=== PATIENT | female | born 1945 | race Caucasian/White ===

== ENCOUNTER 2017-02-03 11:50 | Inpatient (IN) | payer MEDICARE, MEDICAID ==
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
[2017-02-03 12:51] LABS: ABSOLUTE BASOPHILS # (AUTO) 0.1 10^3/uL (0.0-0.2); ABSOLUTE LYMPHOCYTES (AUTO) 1.8 10^3/uL (0.5-4.7); ABSOLUTE MONOCYTES (AUTO) 0.8 10^3/uL (0.1-1.4); ABSOLUTE NEUT (AUTO) 6.6 10^3/uL (1.7-8.2); BASOPHILS % (AUTO) 0.7 % (0-2); EOSINOPHILS % (AUTO) 0.5 % (0-6); HEMATOCRIT 36.7 % (36.0-47.0); HEMOGLOBIN 13.3 g/dL (12.0-15.5); HGB HCT DIFFERENCE 3.2; LYMPHOCYTES % (AUTO) 19.4 % (13-45); MEAN CORPUSCULAR HEMOGLOBIN 32.4 pg (27.0-33.4); MEAN CORPUSCULAR HGB CONC 36.3 g/dL (32.0-36.0); MEAN CORPUSCULAR VOLUME 90 fl (80-97); MONOCYTES % (AUTO) 8.5 % (3-13); RED CELL DISTRIBUTION WIDTH 13.4 % (11.5-14.0); SEGMENTED NEUTROPHILS % (AUTO) 70.9 % (42-78); WHITE BLOOD COUNT 9.3 10^3/uL (4.0-10.5)
[2017-02-03 13:05] LABS: ALANINE AMINOTRANSFERASE 48 U/L (9-52); ALBUMIN 4.7 g/dL (3.5-5.0); ALKALINE PHOSPHATASE 80 U/L (38-126); ANION GAP 14 (5-19); ASPARTATE AMINO TRANSFERASE 51 U/L (14-36); BILIRUBIN,DIRECT 0.1 mg/dL (0.0-0.4); BILIRUBIN,TOTAL 0.8 mg/dL (0.2-1.3); BLOOD UREA NITROGEN 22 mg/dL (7-20); CALCIUM 9.8 mg/dL (8.4-10.2); CARBON DIOXIDE 28 mmol/L (22-30); CHLORIDE 87 mmol/L (98-107); CREATININE RESULT 1.17 mg/dL (0.52-1.25); GLUCOSE 104 mg/dL (75-110); POTASSIUM 3.9 mmol/L (3.6-5.0); SODIUM 129.4 mmol/L (137-145); TOTAL PROTEIN 7.7 g/dL (6.3-8.2)
[2017-02-03 13:18] LABS: CREATINE KINASE MB 1.05 ng/mL (<4.55)
[2017-02-03 13:21] LABS: TROPONIN I < 0.012 ng/mL
--- NOTE | 2017-02-03 13:25 | EKG REPORT ---
SEVERITY:- ABNORMAL ECG - ATRIAL-PACED COMPLEXES BORDERLINE T WAVE ABNORMALITIES : Confirmed by: Agustin Roberson MD 03-Feb-2017 13:24:02
--- NOTE | 2017-02-03 14:05 | ER Document Report ---
ED GI/ <SEGUNDO JACKSON - Last Filed: 02/03/17 16:15> - General Mode of Arrival: Ambulatory Information source: Patient, Relative - son TRAVEL OUTSIDE OF THE [place] IN LAST 30 DAYS: No - HPI Patient complains to provider of: Diarrhea, Vomiting Onset: Other - 3 days ago Associated symptoms: Other - see notes above <PAZ,PREETI - Last Filed: 02/03/17 16:29> - General Chief Complaint: Vomiting/Diarrhea Stated Complaint: ALTERED MENTAL STAUS/VOMITING/DIARRHEA Notes: 72 year old female with history of c-diff presents to the ED accompanied by her son who states that the patient has been vomiting for the past 3 days. The son reports that the patient has been more confused and forgetting things over the past 2 weeks. Patient moved into the son's home 4 weeks ago and the son states that for the first 2 weeks the patient was able to live on her own. The patient was making her own meals, taking medications on her own, and bathing herself, but that suddenly deteriorated 2 weeks ago. Over the last 2 weeks the patient has been more confused, son states that the patient would sit down on the toilet with her depends on and turn on the water to take a bath, but not get into the tub. Patient was seen at [facility] 6 days ago where they requested a stool sample (solid sample). Patient was positive for C-diff on 01/28/2017 and was started on antibiotics. Since yesterday, the patient has been unable to keep down her antibiotics, so the son brought her to the ED. The son reports that the patient first started vomiting 3 days ago, but got progressively worse over the next 2 days. Yesterday, the patient began to have profuse vomiting and diarrhea which has continued today. (PREETI PAZ) - Related Data Allergies/Adverse Reactions: No Known Allergies Allergy (Verified 02/03/17 11:58) Past Medical History - General Information source: Patient - Social History Smoking Status: Unknown if Ever Smoked Family History: DM, Hypertension, Other - Heart disease Patient has suicidal ideation: No Patient has homicidal ideation: No - Past Medical History Cardiac Medical History: Reports: Hx Coronary Artery Disease, Hx Hypercholesterolemia, Hx Hypertension Endocrine Medical History: Reports: Hx Diabetes Mellitus Type 1 - NIDDM, Hx Diabetes Mellitus Type 2 - INSULIN DEPENDENT, Hx Hypothyroidism GI Medical History: Reports: Hx Gastroesophageal Reflux Disease Musculoskeltal Medical History: Reports Hx Arthritis - osteoarthritis Infectious Medical History: Reports: Hx C-Diff Past Surgical History: Reports: Hx Cardiac Catheterization - STENT, PACEMAKER, Hx Coronary Stent, Hx Hysterectomy, Hx Orthopedic Surgery - toes - Immunizations Immunizations up to date: Yes Hx Diphtheria, Pertussis, Tetanus Vaccination: Yes <PREETI PAZ - Last Filed: 02/03/17 16:29> Review of Systems - Review of Systems Constitutional: See HPI, Recent illness - Stool sample positive for C-diff on EENT: No symptoms reported Cardiovascular: No symptoms reported Respiratory: No symptoms reported Gastrointestinal: See HPI, Diarrhea, Vomiting Genitourinary: No symptoms reported Female Genitourinary: No symptoms reported Musculoskeletal: No symptoms reported Skin: No symptoms reported Hematologic/Lymphatic: No symptoms reported Neurological/Psychological: See HPI, Confusion -: Yes All other systems reviewed and negative <PREETI PAZ - Last Filed: 02/03/17 16:29> Physical Exam - General General appearance: Alert In distress: None - HEENT Head: Normocephalic, Atraumatic Eyes: Normal Extraocular movements intact: Yes Pupils: PERRL - Respiratory Respiratory status: No respiratory distress Breath sounds: Normal - Cardiovascular Rhythm: Regular Heart sounds: Normal auscultation - Abdominal Inspection: Normal Distension: No distension Tenderness: Nontender - Back Back: Normal - Extremities General upper extremity: Normal inspection, Normal ROM General lower extremity: Normal inspection, Normal ROM - Neurological Neuro grossly intact: Yes Cognition: Normal Orientation: Disoriented to place, Disoriented to time, Disoriented to events [place] Coma Scale Eye Opening: Spontaneous [place] Coma Scale Verbal: Oriented [place] Coma Scale Motor: Obeys Commands Aydee Coma Scale Total: 15 Speech: Normal - Psychological Associated symptoms: Normal affect, Normal mood - Skin Skin Temperature: Warm Skin Moisture: Dry Skin Color: Normal <PREETI PAZ - Last Filed: 02/03/17 16:29> - Vital signs Vitals: Temp Pulse Resp BP Pulse Ox 98.5 F 95 18 125/66 98 02/03/17 12:02 02/03/17 12:02 02/03/17 12:02 02/03/17 12:02 02/03/17 12:02 Course - Laboratory Result Diagrams: 02/03/17 12:20 02/03/17 12:20 - EKG Interpretation by Me Rate: Normal <SEGUNDO JACKSON - Last Filed: 02/03/17 16:15> - Laboratory Result Diagrams: 02/03/17 12:20 02/03/17 12:20 - Consults Dr. Parish Time consulted: 16:15 <PREETI PAZ - Last Filed: 02/03/17 16:29> - Vital Signs Vital signs: Temp Pulse Resp BP Pulse Ox 98.5 F 95 18 125/66 98 02/03/17 12:02 02/03/17 12:02 02/03/17 12:02 02/03/17 12:02 02/03/17 12:02 - Laboratory Laboratory results interpreted by me: 02/03/17 02/03/17 02/03/17 12:20 12:20 14:18 MCHC 36.3 H Sodium 129.4 L Chloride 87 L BUN 22 H Est GFR ( Amer) 55 L Est GFR (Non-Af Amer) 45 L AST 51 H Lipase 346.0 H Urine Blood SMALL H Ur Leukocyte Esterase LARGE H - EKG Interpretation by Me Additional EKG results interpreted by me: 02/03/17 14:57 Atrial paced rhythm with borderline T-wave abnormalities and flattening. Normal QRS. No ectopy (SEGUNDO JACKSON) - Consults Dr. Parish Reason for consultation: 02/03/17 16:15 Patient was discussed with Dr. Parish and agrees to admit the patient. (PREETI PAZ) Discharge <SEGUNDO JACKSON - Last Filed: 02/03/17 16:15> <PREETI PAZ - Last Filed: 02/03/17 16:29> - Discharge Clinical Impression: Vomiting and diarrhea, Hyponatremia, Clostridium difficile diarrhea Scribe Documentation - Scribe Written by [place]:: America Yao, 02/03/2017 1500 acting as scribe for :: Georges <PREETI PAZ - Last Filed: 02/03/17 16:29>
[2017-02-03] MEDS ORDERED: NORMAL SALINE 1000 ML 1,000 ML IV ONE (14:47)
[2017-02-03 15:08] LABS: APPEARANCE,URINE SLIGHTLY-CLOUDY; BILIRUBIN,URINE NEGATIVE (NEGATIVE); GLUCOSE, URINE NEGATIVE (NEGATIVE); KETONES,URINE NEGATIVE (NEGATIVE); LEUKOCYTE ESTERASE,URINE LARGE (NEGATIVE); NITRITE,URINE NEGATIVE (NEGATIVE); PROTEIN,URINE NEGATIVE (NEGATIVE); URINE SPECIFIC GRAVITY 1.004; UROBILINOGEN,URINE NEGATIVE mg/dL (<2.0)
[2017-02-03] MEDS ORDERED: ACETAMINOPHEN 325 MG TABLET PO PRN (17:53)
[2017-02-03] MEDS ORDERED: NORMAL SALINE 1000 ML 1,000 ML IV PRN (17:53)
[2017-02-03] MEDS ORDERED: ONDANSETRON HCL INJ/PF 4 MG/2 ML SDV IV PRN (18:01)
[2017-02-03] MEDS ORDERED: INSULIN REG, HUMAN 100 UNIT/ML 3 ML VIAL (PYX) SUBCUT PRN (18:38)
[2017-02-03] MEDS ORDERED: DEXTROSE 50%-WATER 25 GM/50 ML DISP.SYRIN IV PRN ×2 (18:38)
[2017-02-03] MEDS ORDERED: DEXTROSE 40% GEL 15 GM TUBE PO PRN ×2 (18:38)
[2017-02-03] MEDS ORDERED: GLUCAGON,HUMAN RECOMB 1 MG INJ IM PRN (18:38)
--- NOTE | 2017-02-03 18:38 | PDOC H&P ---
History of Present Illness Admission Date/PCP: 02/03/17 18:12 Patient complains of: Nausea or vomiting History of Present Illness: NARAYAN CROSS is a 72 year old female, with history of coronary artery disease, hypertension, hyperlipidemia, type II diabetes mellitus diet controlled brought to the hospital by the family due to nausea vomiting and confusion. Patient has an underlying dementia but still able to communicate. Reliability however is a question. She was diagnosed last week by her physician with Clostridium difficile colitis. She was having diarrhea for several days with decreased oral intake. Reportedly the diarrhea persisted and for the past 2-3 days the patient started to develop nausea and vomiting. The patient denies abdominal pain, shortness of breath, chills or fever. She stated that she go to the [facility] about 3 times per day to move her bowels, and when asked when was the last time she had a bowel movement, she reports was 2 days ago. In the emergency room no diarrhea still reported. Sodium level is low. WBC was normal. Patient was referred for admission. Past Medical History Past Medical History: Medication reconciliation pending verification from the patient's pharmacist. Cardiac Medical History: Reports: Coronary Artery Disease, Hyperlipidema, Hypertension Denies: DVT, Myocardial Infarction Pulmonary Medical History: Denies: Asthma, Chronic Obstructive Pulmonary Disease (COPD) Neurological Medical History: Denies: Migraine, Seizures Endocrine Medical History: Reports: Diabetes Mellitus Type 1 - NIDDM, Diabetes Mellitus Type 2 - INSULIN DEPENDENT, Hypothyroidism GI Medical History: Reports: Gastroesophageal Reflux Disease Denies: Hepatitis, Hiatal Hernia Musculoskeltal Medical History: Reports: Arthritis - osteoarthritis Psychiatric Medical History: Denies: Depression Hematology: Denies: Anemia, Sickle Cell Disease Infectious Medical History: Reports: Clostridium Difficile Past Surgical History Past Surgical History: Reports: Cardiac Catheterization - STENT, PACEMAKER, Coronary Stent, Hysterectomy, Orthopedic Surgery - toes, Other - Pacemaker implant Denies: Amputation, Mastectomy, Pacemaker Social History Information Source: Patient Smoking Status: Never Smoker Frequency of Alcohol Use: None Hx Recreational Drug Use: No Drugs: None Hx Prescription Drug Abuse: No Family History Family History: DM, Hypertension, Other - Heart disease Parental Family History Reviewed: Yes Children Family History Reviewed: Yes Sibling(s) Family History Reviewed.: Yes Medication/Allergy Allergies/Adverse Reactions: No Known Allergies Allergy (Verified 02/03/17 11:58) Review of Systems Review of Systems: Again reliability is questionable however patient still able to communicate. Constitutional: PRESENT: headache(s) - Occasional. ABSENT: chills, fever(s), weakness, weight gain, weight loss Eyes: ABSENT: visual disturbances Ears: ABSENT: hearing changes Nose, Mouth, and Throat: ABSENT: mouth pain, sore throat Cardiovascular: ABSENT: chest pain, dyspnea on exertion, edema, orthropnea, palpitations Respiratory: PRESENT: cough - Occasional. ABSENT: dyspnea, hemoptysis Gastrointestinal: PRESENT: abdominal pain, diarrhea, nausea, vomiting. ABSENT: constipation, hematemesis, hematochezia, melena Genitourinary: ABSENT: difficulty urinating, dysuria, hematuria Musculoskeletal: ABSENT: joint swelling Integumentary: ABSENT: pruritus, rash, wounds Neurological: ABSENT: confusion, dizziness, focal weakness, syncope Psychiatric: ABSENT: anxiety, depression, homidical ideation, suicidal ideation Endocrine: ABSENT: cold intolerance, heat intolerance, polydipsia, polyphagia, polyuria Hematologic/Lymphatic: ABSENT: easy bleeding, easy bruising Physical Exam Vital Signs: Temp Pulse Resp BP Pulse Ox 98.5 F 95 18 125/66 98 02/03/17 12:02 02/03/17 12:02 02/03/17 12:02 02/03/17 12:02 02/03/17 12:02 General appearance: PRESENT: no acute distress, cooperative, other - Overweight Head exam: PRESENT: atraumatic, normocephalic Eye exam: PRESENT: conjunctiva pink, EOMI, PERRLA. ABSENT: scleral icterus Ear exam: PRESENT: normal external ear exam. ABSENT: drainage Mouth exam: PRESENT: dry mucosa, neck supple, tongue midline Throat exam: ABSENT: post pharyngeal erythema, tonsillar erythema Neck exam: ABSENT: carotid bruit, JVD, lymphadenopathy, thyromegaly Respiratory exam: PRESENT: clear to auscultation jaimie. ABSENT: rales, rhonchi, wheezes Cardiovascular exam: PRESENT: RRR, +S1, +S2. ABSENT: diastolic murmur, rubs, systolic murmur Pulses: PRESENT: normal dorsalis pedis pul Vascular exam: PRESENT: normal capillary refill GI/Abdominal exam: PRESENT: hyperactive bowel sounds, soft. ABSENT: distended, guarding, mass, organolmegaly, rebound, tenderness Rectal exam: PRESENT: deferred Extremities exam: PRESENT: full ROM. ABSENT: calf tenderness, clubbing, pedal edema Neurological exam: PRESENT: alert, awake, oriented to person. ABSENT: oriented to place, oriented to time Psychiatric exam: PRESENT: appropriate affect, normal mood. ABSENT: homicidal ideation, suicidal ideation Skin exam: PRESENT: dry, intact, warm. ABSENT: cyanosis, rash Assessment & Plan - Diagnosis (1) Hyponatremia Is this a current diagnosis for this admission?: Yes (2) Vomiting and diarrhea Is this a current diagnosis for this admission?: Yes (3) Abnormal urinalysis Is this a current diagnosis for this admission?: Yes (4) Gastroesophageal reflux disease Qualifiers: Esophagitis presence: without esophagitis Qualified Code(s): K21.9 - Gastro-esophageal reflux disease without esophagitis Is this a current diagnosis for this admission?: Yes (5) Hyperlipidemia Qualifiers: Hyperlipidemia type: unspecified Qualified Code(s): E78.5 - Hyperlipidemia, unspecified Is this a current diagnosis for this admission?: Yes (6) Hypertension Qualifiers: Hypertension type: essential hypertension Qualified Code(s): I10 - Essential (primary) hypertension Is this a current diagnosis for this admission?: Yes (7) Hypothyroidism Qualifiers: Hypothyroidism type: unspecified Qualified Code(s): E03.9 - Hypothyroidism, unspecified Is this a current diagnosis for this admission?: Yes (8) Senile dementia of Alzheimer's type Is this a current diagnosis for this admission?: Yes (9) Type II diabetes mellitus Qualifiers: Diabetes mellitus complication status: with unspecified complications Diabetes mellitus termite helper insulin use: without termite helper use Qualified Code(s): E11.8 - Type 2 diabetes mellitus with unspecified complications Is this a current diagnosis for this admission?: Yes - Time Time Spent: 30 to 50 Minutes - Plan Summary Plan Summary: The patient will be placed in observation. We will hydrate the patient and monitor serum sodium. I will discontinue the patient's diuretic and RIMMA inhibitor due to hyponatremia. We will keep the beta annette for blood pressure control. We will culture the urine, obtain stool for Clostridium difficile toxin. I will begin the patient on Flagyl and give oral lactobacillus. One dose of IV ceftriaxone will be given. DVT prophylaxis with Lovenox would be placed. I will put her on full liquid diet. Sliding scale insulin will be added. Further testing depends on the initial evaluation as outlined above. We will check TSH and free T4.
[2017-02-03] MEDS ORDERED: CEFTRIAXONE 1 GM/D5W RTU 1 GM/50 ML RTUPB IV ONE (19:00)
[2017-02-03] MEDS ORDERED: ENOXAPARIN SODIUM INJ 40 MG/0.4 ML DISP.SYRIN SUBCUT ONE (19:00)
[2017-02-03 19:40] LABS: THYROID STIMULATING HORMONE 2.19 uIU/mL (0.47-4.68)
[2017-02-03] MEDS: METRONIDAZOLE 500 MG TABLET PO SCH (23:37)
[2017-02-03] MEDS: METOPROLOL TARTRATE 50 MG TABLET PO SCH (23:38)
[2017-02-04 05:18] LABS: ANION GAP 12 (5-19)
[2017-02-04 05:21] LABS: AMYLASE 70 U/L (30-110); BLOOD UREA NITROGEN 17 mg/dL (7-20); CALCIUM 8.8 mg/dL (8.4-10.2); CARBON DIOXIDE 25 mmol/L (22-30); CHLORIDE 99 mmol/L (98-107); CREATININE RESULT 0.93 mg/dL (0.52-1.25); GLUCOSE 59 mg/dL (75-110); LIPASE 347.6 U/L (23-300); SODIUM 135.5 mmol/L (137-145)
[2017-02-04] MEDS ORDERED: POTASSIUM CHLORIDE 20 MEQ/15 ML UDCUP PO ONE (05:45)
[2017-02-04 05:48] LABS: ADD ON TESTING BLD IN LAB ACKNOWLEDGE
[2017-02-04] MEDS: LANSOPRAZOLE 30 MG TAB.RAP.DR PO SCH ×2 (06:01→17:10)
[2017-02-04] MEDS: METRONIDAZOLE 500 MG TABLET PO SCH ×4 (06:01→23:41)
[2017-02-04 06:09] LABS: MAGNESIUM 1.3 mg/dL (1.6-2.3)
[2017-02-04] MEDS ORDERED: ENOXAPARIN SODIUM INJ 40 MG/0.4 ML DISP.SYRIN SUBCUT SCH (08:00)
[2017-02-04] MEDS: LACTOBACILLUS ACIDOPHILUS 250 MG TAB PO SCH ×2 (09:52→17:11)
[2017-02-04] MEDS: CLOPIDOGREL BISULFATE 75 MG TABLET PO SCH (09:52)
[2017-02-04] MEDS: POTASSIUM CHLORIDE 20 MEQ/15 ML UDCUP PO SCH ×2 (09:57→10:00)
[2017-02-04] MEDS: METOPROLOL TARTRATE 50 MG TABLET PO SCH ×2 (09:58→21:38)
[2017-02-04] MEDS ORDERED: PHARMACY COMMUNICATION ORDER MC NR (12:00)
[2017-02-04] MEDS ORDERED: NORMAL SALINE 1000 ML 500 ML IV ONE (12:00)
[2017-02-04] MEDS ORDERED: POTASSIUM CHLORIDE 10 MEQ TABLET.SA PO ONE (12:00)
[2017-02-04] MEDS ORDERED: POTASSI CL 20 MEQ/50 ML RIDER 50 ML IV ONE (12:00)
[2017-02-04] MEDS ORDERED: POTASSIUM CHLORIDE 20 MEQ/15 ML UDCUP ONE (14:05)
[2017-02-04] MEDS: NORMAL SALINE 1000 ML 1,000 ML IV PRN (14:12)
[2017-02-04] MEDS: MAGNESIUM SULFATE/D5W 100 ML IV SCH (17:09)
[2017-02-04] MEDS: VANCOMYCIN HCL INJ 500 MG VIAL PO SCH ×2 (17:12→23:41)
--- NOTE | 2017-02-04 19:54 | PDOC PROGRESS REPORT ---
Subjective Progress Note for:: 02/04/17 Subjective:: Unable to obtain review of systems secondary to dementia. Patient seen earlier on morning rounds. Patient denies any complaints of pain at this time. She reports she still stooling. Physical Exam Vital Signs: Temp Pulse Resp BP Pulse Ox 98.3 F 78 16 107/42 L 100 02/04/17 15:01 02/04/17 15:01 02/04/17 15:01 02/04/17 15:01 02/04/17 15:01 Intake & Output 02/03/17 02/04/17 02/05/17 06:59 06:59 06:59 Intake Total 670 1813 Output Total 200 Balance 670 1613 Weight 48.8 kg Exam: General: Awake alert and answers questions somewhat appropriately, not oriented to birthday, date, or place; no acute respiratory distress HEENT: AT/NC, PERRL, EOMI, oropharynx is moist, pink, no scleral icterus, no conjunctival injection Neck: No JVD, trachea midline Chest: Clear to auscultation bilaterally, no wheezes rhonchi or rales CV: normal S1 and S2, 2/6 murmur; no rub or gallop Abdomen: Soft, mildly to palpation, mildly distended, active bowel sounds; no rebound, rigidity, or guarding Extremities: No cyanosis, clubbing or edema Neuro: Cranial nerves II through XII are grossly intact without focal deficits Psych: Normal mood and affect Results Laboratory Results: 02/04/17 04:08 02/04/17 02/04/17 04:08 04:08 Sodium 135.5 L Potassium 3.0 L* Chloride 99 Carbon Dioxide 25 Anion Gap 12 BUN 17 Creatinine 0.93 Est GFR ( Amer) > 60 Est GFR (Non-Af Amer) 59 L Glucose 59 L Calcium 8.8 Magnesium 1.3 L Amylase 70 Lipase 347.6 H Impressions: Chest X-Ray 02/03/17 17:56 IMPRESSION: NO SIGNIFICANT RADIOGRAPHIC FINDING IN THE CHEST. Assessment & Plan - Diagnosis (1) Clostridium difficile diarrhea Is this a current diagnosis for this admission?: YesPlan: Will continue Flagyl and also place patient on Vancocin she does meet sepsis criteria. (2) Hyponatremia Is this a current diagnosis for this admission?: YesPlan: Likely secondary to intravascular volume depletion. (3) Hyperlipidemia Qualifiers: Hyperlipidemia type: unspecified Qualified Code(s): E78.5 - Hyperlipidemia, unspecified Is this a current diagnosis for this admission?: YesPlan: Continue statin (4) Hypoglycemia Is this a current diagnosis for this admission?: YesPlan: Accu-Cheks every 6 (5) Hypomagnesemia Is this a current diagnosis for this admission?: YesPlan: Will replete with 3 g IV (6) Hypothyroidism Qualifiers: Hypothyroidism type: unspecified Qualified Code(s): E03.9 - Hypothyroidism, unspecified Is this a current diagnosis for this admission?: YesPlan: We'll check thyroid function studies. (7) Senile dementia of Alzheimer's type Is this a current diagnosis for this admission?: YesPlan: Continue supportive care and bed alarm. (8) Syncope Qualifiers: Syncope type: vasovagal syncope Qualified Code(s): R55 - Syncope and collapse Is this a current diagnosis for this admission?: YesPlan: Likely secondary to orthostasis. Continue to hold antihypertensives and give IV fluids (9) Type II diabetes mellitus Qualifiers: Diabetes mellitus complication status: with unspecified complications Diabetes mellitus terminal press operator insulin use: with half-way use Qualified Code(s): E11.8 - Type 2 diabetes mellitus with unspecified complications; Z79.4 - terminal gauger supervisor (current) use of insulin Is this a current diagnosis for this admission?: YesPlan: Continue sliding scale insulin. Patient currently with poor oral intake. Patient with hypoglycemia (10) UTI (urinary tract infection) Qualifiers: Urinary tract infection type: acute cystitis Hematuria presence: without hematuria Qualified Code(s): N30.00 - Acute cystitis without hematuria Is this a current diagnosis for this admission?: YesPlan: Will obtain culture place patient on Rocephin - Time Time Spent with patient: 35 or more minutes Medications reviewed and adjusted accordingly: Yes Anticipated discharge: Acute Rehab
[2017-02-04] MEDS: MAGNESIUM SULFATE 1 GM/D5W 100 ML IV SCH ×2 (20:28→21:37)
[2017-02-04] MEDS: CEFTRIAXONE 1 GM/D5W RTU 1 GM/50 ML RTUPB IV SCH (23:17)
[2017-02-05] MEDS: VANCOMYCIN HCL INJ 500 MG VIAL PO SCH ×3 (05:33→19:07)
[2017-02-05] MEDS: LANSOPRAZOLE 30 MG TAB.RAP.DR PO SCH ×2 (05:34→19:08)
[2017-02-05] MEDS: METRONIDAZOLE 500 MG TABLET PO SCH ×3 (05:34→19:08)
[2017-02-05 08:55] LABS: ABSOLUTE BASOPHILS # (AUTO) 0.1 10^3/uL (0.0-0.2); ABSOLUTE EOSINOPHILS # (AUTO) 0.1 10^3/uL (0.0-0.6); ABSOLUTE LYMPHOCYTES (AUTO) 1.3 10^3/uL (0.5-4.7); ABSOLUTE MONOCYTES (AUTO) 0.5 10^3/uL (0.1-1.4); BASOPHILS % (AUTO) 1.2 % (0-2); EOSINOPHILS % (AUTO) 1.9 % (0-6); HEMATOCRIT 31.9 % (36.0-47.0); HEMOGLOBIN 11.3 g/dL (12.0-15.5); LYMPHOCYTES % (AUTO) 21.3 % (13-45); MEAN CORPUSCULAR HEMOGLOBIN 32.7 pg (27.0-33.4); MEAN CORPUSCULAR HGB CONC 35.4 g/dL (32.0-36.0); MEAN CORPUSCULAR VOLUME 92 fl (80-97); RED BLOOD COUNT 3.46 10^6/uL (3.72-5.28); RED CELL DISTRIBUTION WIDTH 13.5 % (11.5-14.0); SEGMENTED NEUTROPHILS % (AUTO) 66.6 % (42-78)
[2017-02-05 09:18] LABS: ANION GAP 8 (5-19); BLOOD UREA NITROGEN 8 mg/dL (7-20); CALCIUM 8.7 mg/dL (8.4-10.2); CARBON DIOXIDE 24 mmol/L (22-30); CHLORIDE 109 mmol/L (98-107); CREATININE RESULT 1.03 mg/dL (0.52-1.25); GLUCOSE 122 mg/dL (75-110); MAGNESIUM 2.2 mg/dL (1.6-2.3); POTASSIUM 4.7 mmol/L (3.6-5.0); SODIUM 141.4 mmol/L (137-145)
[2017-02-05] MEDS ORDERED: ISOSORBIDE MONONITRATE 30 MG TAB.ER.24H PO SCH (10:00)
[2017-02-05] MEDS ORDERED: (PENDING PHARMACY ID) (Donepezil Hcl [Aricept] 10 MG) PO SCH (10:00)
[2017-02-05] MEDS: LACTOBACILLUS ACIDOPHILUS 250 MG TAB PO SCH ×2 (11:03→19:08)
[2017-02-05] MEDS: METOPROLOL TARTRATE 50 MG TABLET PO SCH ×2 (11:04→21:30)
[2017-02-05] MEDS: CLOPIDOGREL BISULFATE 75 MG TABLET PO SCH (11:04)
[2017-02-05] MEDS: DONEPEZIL HCL 5 MG TABLET PO SCH (11:05)
[2017-02-05] MEDS: NORMAL SALINE 1000 ML 1,000 ML IV PRN (13:57)
--- NOTE | 2017-02-05 17:01 | PDOC PROGRESS REPORT ---
Subjective Progress Note for:: 02/05/17 Subjective:: Unable to obtain review of systems secondary to dementia. Patient seen earlier on morning rounds. Patient denies any complaints of pain at this time. Patient is still having large amounts of diarrhea. Patient continues to be hypotensive without fluid. Physical Exam Vital Signs: Temp Pulse Resp BP Pulse Ox 97.5 F 68 16 103/42 L 99 02/05/17 00:16 02/05/17 00:16 02/05/17 00:16 02/05/17 00:16 02/05/17 00:16 Intake & Output 02/04/17 02/05/17 02/06/17 06:59 06:59 06:59 Intake Total 670 3213 Output Total 1200 Balance 670 2012 Weight 48.8 kg 50.8 kg Exam: General: Awake alert and oriented 1 (to self alone); no acute respiratory distress HEENT: AT/NC, PERRL, EOMI, oropharynx is moist, pink, no scleral icterus, no conjunctival injection Neck: No JVD, trachea midline Chest: Clear to auscultation bilaterally, no wheezes rhonchi or rales CV: normal S1 and S2, 2/6 murmur; no rub or gallop Abdomen: Soft, mildly to palpation, mildly distended, active bowel sounds; no rebound, rigidity, or guarding Extremities: No cyanosis, clubbing or edema Neuro: Cranial nerves II through XII are grossly intact without focal deficits Psych: Normal mood and affect Results Laboratory Results: 02/04/17 04:08 Impressions: Chest X-Ray 02/03/17 17:56 IMPRESSION: NO SIGNIFICANT RADIOGRAPHIC FINDING IN THE CHEST. Assessment & Plan - Diagnosis (1) Sepsis Qualifiers: Sepsis type: sepsis due to unspecified organism Qualified Code(s): A41.9 - Sepsis, unspecified organism Is this a current diagnosis for this admission?: YesPlan: Patient septic secondary to C. difficile. Continues to have large volume loss and requiring IV fluids to maintain a map of 65. Patient normally has hypertension. (2) Clostridium difficile diarrhea Is this a current diagnosis for this admission?: YesPlan: On Flagyl day #2 and on Vancocin day #1 she does meet sepsis criteria. (3) Hyponatremia Is this a current diagnosis for this admission?: YesPlan: Likely secondary to intravascular volume depletion. (4) Hyperlipidemia Qualifiers: Hyperlipidemia type: unspecified Qualified Code(s): E78.5 - Hyperlipidemia, unspecified Is this a current diagnosis for this admission?: YesPlan: Continue statin (5) Hypoglycemia Is this a current diagnosis for this admission?: YesPlan: Accu-Cheks every before meals and at bedtime if needed (6) Hypomagnesemia Is this a current diagnosis for this admission?: YesPlan: Currently repleted (7) Hypothyroidism Qualifiers: Hypothyroidism type: unspecified Qualified Code(s): E03.9 - Hypothyroidism, unspecified Is this a current diagnosis for this admission?: YesPlan: TSH and free T4 is normal (8) Senile dementia of Alzheimer's type Is this a current diagnosis for this admission?: YesPlan: Continue supportive care and bed alarm. (9) Syncope Qualifiers: Syncope type: vasovagal syncope Qualified Code(s): R55 - Syncope and collapse Is this a current diagnosis for this admission?: YesPlan: Likely secondary to orthostasis. Continue to hold antihypertensives and give IV fluids (10) Type II diabetes mellitus Qualifiers: Diabetes mellitus complication status: with unspecified complications Diabetes mellitus emt intermediate insulin use: with emt intermediate use Qualified Code(s): E11.8 - Type 2 diabetes mellitus with unspecified complications; Z79.4 - director long term care (current) use of insulin Is this a current diagnosis for this admission?: YesPlan: Continue sliding scale insulin. Patient currently with poor oral intake. Patient with hypoglycemia. Encourage oral intake and will liberalize diet (11) UTI (urinary tract infection) Qualifiers: Urinary tract infection type: acute cystitis Hematuria presence: without hematuria Qualified Code(s): N30.00 - Acute cystitis without hematuria Is this a current diagnosis for this admission?: YesPlan: Will obtain culture place patient on Rocephin - Time Time Spent with patient: 25-34 minutes Medications reviewed and adjusted accordingly: Yes - Inpatient Certification Medical Necessity: Need For IV Fluids Post Hospital Care: D/C Fire Prevention Chief Documentation
[2017-02-05] MEDS: CEFTRIAXONE 1 GM/D5W RTU 1 GM/50 ML RTUPB IV SCH (21:39)
[2017-02-06] MEDS: METRONIDAZOLE 500 MG TABLET PO SCH ×5 (00:27→21:29)
[2017-02-06] MEDS: VANCOMYCIN HCL INJ 500 MG VIAL PO SCH ×4 (00:27→18:02)
[2017-02-06 04:55] LABS: ABSOLUTE BASOPHILS # (AUTO) 0.1 10^3/uL (0.0-0.2); ABSOLUTE EOSINOPHILS # (AUTO) 0.2 10^3/uL (0.0-0.6); ABSOLUTE LYMPHOCYTES (AUTO) 1.4 10^3/uL (0.5-4.7); ABSOLUTE MONOCYTES (AUTO) 0.6 10^3/uL (0.1-1.4); ABSOLUTE NEUT (AUTO) 5.4 10^3/uL (1.7-8.2); BASOPHILS % (AUTO) 1.3 % (0-2); EOSINOPHILS % (AUTO) 2.6 % (0-6); HEMATOCRIT 30.3 % (36.0-47.0); HEMOGLOBIN 11.1 g/dL (12.0-15.5); LYMPHOCYTES % (AUTO) 18.1 % (13-45); MEAN CORPUSCULAR HEMOGLOBIN 33.4 pg (27.0-33.4); MEAN CORPUSCULAR HGB CONC 36.5 g/dL (32.0-36.0); MEAN CORPUSCULAR VOLUME 92 fl (80-97); MONOCYTES % (AUTO) 7.5 % (3-13); RED BLOOD COUNT 3.31 10^6/uL (3.72-5.28); RED CELL DISTRIBUTION WIDTH 13.6 % (11.5-14.0); SEGMENTED NEUTROPHILS % (AUTO) 70.5 % (42-78); WHITE BLOOD COUNT 7.6 10^3/uL (4.0-10.5)
[2017-02-06 05:16] LABS: ANION GAP 9 (5-19); BLOOD UREA NITROGEN 5 mg/dL (7-20); CALCIUM 8.3 mg/dL (8.4-10.2); CARBON DIOXIDE 23 mmol/L (22-30); CHLORIDE 110 mmol/L (98-107); CREATININE RESULT 0.88 mg/dL (0.52-1.25); GLUCOSE 103 mg/dL (75-110); POTASSIUM 4.3 mmol/L (3.6-5.0); SODIUM 141.8 mmol/L (137-145)
[2017-02-06] MEDS: LANSOPRAZOLE 30 MG TAB.RAP.DR PO SCH ×2 (06:20→18:02)
[2017-02-06] MEDS: CLOPIDOGREL BISULFATE 75 MG TABLET PO SCH (10:33)
[2017-02-06] MEDS: DONEPEZIL HCL 5 MG TABLET PO SCH (10:34)
[2017-02-06] MEDS: LACTOBACILLUS ACIDOPHILUS 250 MG TAB PO SCH ×2 (10:34→18:02)
[2017-02-06] MEDS ORDERED: CHOLESTYRAMINE/ASPARTAME 4 GM PACKET PO ONE (11:45)
[2017-02-06] MEDS: METOPROLOL TARTRATE 50 MG TABLET PO SCH ×2 (13:41→21:30)
--- NOTE | 2017-02-06 19:22 | PDOC PROGRESS REPORT ---
Subjective Progress Note for:: 02/06/17 Subjective:: Unable to obtain review of systems secondary to dementia. Patient seen earlier on morning rounds. Patient denies any complaints of pain at this time. Patient is still having large amounts of diarrhea. Physical Exam Vital Signs: Temp Pulse Resp BP Pulse Ox 98.1 F 71 20 104/49 L 99 02/06/17 04:00 02/06/17 04:00 02/06/17 04:00 02/06/17 04:00 02/06/17 04:00 Intake & Output 02/05/17 02/06/17 02/07/17 06:59 06:59 06:59 Intake Total 3250 Output Total 1100 Balance 2150 Exam: General: Awake alert and oriented 1 (to self alone); no acute respiratory distress HEENT: AT/NC, PERRL, EOMI, oropharynx is moist, pink, no scleral icterus, no conjunctival injection Neck: No JVD, trachea midline Chest: Clear to auscultation bilaterally, no wheezes rhonchi or rales CV: normal S1 and S2, 2/6 murmur; no rub or gallop Abdomen: Soft, mildly to palpation, mildly distended, active bowel sounds; no rebound, rigidity, or guarding Extremities: No cyanosis, clubbing or edema Neuro: Cranial nerves II through XII are grossly intact without focal deficits Psych: Normal mood and affect Results Laboratory Results: 02/06/17 04:15 02/06/17 04:15 02/05/17 02/05/17 02/06/17 08:45 08:45 04:15 WBC 6.0 7.6 RBC 3.46 L 3.31 L Hgb 11.3 L 11.1 L Hct 31.9 L 30.3 L MCV 92 92 MCH 32.7 33.4 MCHC 35.4 36.5 H RDW 13.5 13.6 Plt Count 185 155 Seg Neutrophils % 66.6 70.5 Lymphocytes % 21.3 18.1 Monocytes % 9.0 7.5 Eosinophils % 1.9 2.6 Basophils % 1.2 1.3 Absolute Neutrophils 4.0 5.4 Absolute Lymphocytes 1.3 1.4 Absolute Monocytes 0.5 0.6 Absolute Eosinophils 0.1 0.2 Absolute Basophils 0.1 0.1 Sodium 141.4 Potassium 4.7 Chloride 109 H Carbon Dioxide 24 Anion Gap 8 BUN 8 Creatinine 1.03 Est GFR ( Amer) > 60 Est GFR (Non-Af Amer) 52 L Glucose 122 H Calcium 8.7 Magnesium 2.2 02/06/17 04:15 WBC RBC Hgb Hct MCV MCH MCHC RDW Plt Count Seg Neutrophils % Lymphocytes % Monocytes % Eosinophils % Basophils % Absolute Neutrophils Absolute Lymphocytes Absolute Monocytes Absolute Eosinophils Absolute Basophils Sodium 141.8 Potassium 4.3 Chloride 110 H Carbon Dioxide 23 Anion Gap 9 BUN 5 L Creatinine 0.88 Est GFR ( Amer) > 60 Est GFR (Non-Af Amer) > 60 Glucose 103 Calcium 8.3 L Magnesium Impressions: Chest X-Ray 02/03/17 17:56 IMPRESSION: NO SIGNIFICANT RADIOGRAPHIC FINDING IN THE CHEST. Assessment & Plan - Diagnosis (1) Sepsis Qualifiers: Sepsis type: sepsis due to unspecified organism Qualified Code(s): A41.9 - Sepsis, unspecified organism Is this a current diagnosis for this admission?: YesPlan: Patient septic secondary to C. difficile. Attempt to decrease IV fluids and stop them today and continue to to maintain a map of 65. Patient normally has hypertension. All antihypertensives are on hold. (2) Clostridium difficile diarrhea Is this a current diagnosis for this admission?: YesPlan: On Flagyl day #3 and on Vancocin day #2 she does meet sepsis criteria. (3) Hyponatremia Is this a current diagnosis for this admission?: YesPlan: Likely secondary to intravascular volume depletion. (4) Hyperlipidemia Qualifiers: Hyperlipidemia type: unspecified Qualified Code(s): E78.5 - Hyperlipidemia, unspecified Is this a current diagnosis for this admission?: YesPlan: Continue statin (5) Hypoglycemia Is this a current diagnosis for this admission?: Yes (6) Hypomagnesemia Is this a current diagnosis for this admission?: Yes (7) Hypothyroidism Qualifiers: Hypothyroidism type: unspecified Qualified Code(s): E03.9 - Hypothyroidism, unspecified Is this a current diagnosis for this admission?: YesPlan: TSH and free T4 is normal (8) Senile dementia of Alzheimer's type Is this a current diagnosis for this admission?: YesPlan: Continue supportive care and bed alarm. (9) Syncope Qualifiers: Syncope type: vasovagal syncope Qualified Code(s): R55 - Syncope and collapse Is this a current diagnosis for this admission?: Yes (10) Type II diabetes mellitus Qualifiers: Diabetes mellitus complication status: with unspecified complications Diabetes mellitus half-way insulin use: with rn long term care use Qualified Code(s): E11.8 - Type 2 diabetes mellitus with unspecified complications; Z79.4 - long-term (current) use of insulin Is this a current diagnosis for this admission?: Yes (11) UTI (urinary tract infection) Qualifiers: Urinary tract infection type: acute cystitis Hematuria presence: without hematuria Qualified Code(s): N30.00 - Acute cystitis without hematuria Is this a current diagnosis for this admission?: YesPlan: Pending culture. Patient on day #3 - Time Time Spent with patient: 25-34 minutes Medications reviewed and adjusted accordingly: Yes Anticipated discharge: Home with Homehealth
[2017-02-06] MEDS: CEFTRIAXONE 1 GM/D5W RTU 1 GM/50 ML RTUPB IV SCH (21:29)
[2017-02-07] MEDS: VANCOMYCIN HCL INJ 500 MG VIAL PO SCH ×5 (00:40→23:41)
[2017-02-07] MEDS: METRONIDAZOLE 500 MG TABLET PO SCH ×4 (06:20→23:41)
[2017-02-07] MEDS: LANSOPRAZOLE 30 MG TAB.RAP.DR PO SCH ×2 (06:20→17:50)
[2017-02-07] MEDS: CLOPIDOGREL BISULFATE 75 MG TABLET PO SCH (11:37)
[2017-02-07] MEDS: LACTOBACILLUS ACIDOPHILUS 250 MG TAB PO SCH ×2 (11:37→17:50)
[2017-02-07] MEDS: DONEPEZIL HCL 5 MG TABLET PO SCH (11:37)
[2017-02-07] MEDS: METOPROLOL TARTRATE 50 MG TABLET PO SCH ×2 (11:54→22:54)
[2017-02-07] MEDS ORDERED: RISPERIDONE 0.25 MG TABLET PO ONE (14:10)
--- NOTE | 2017-02-07 16:55 | PDOC PROGRESS REPORT ---
Subjective Progress Note for:: 02/07/17 Subjective:: Patient seen earlier on morning rounds. Unable to obtain review of systems secondary to dementia. Patient has had 3 diarrheal stools today. Patient is currently quite agitated and insisting that somebody take her to [facility]. She reports that the nurse stated that she would take her to [facility] and her son abruptly left her. She thinks the thermostat on the wall is a phone. Physical Exam Vital Signs: Temp Pulse Resp BP Pulse Ox 98.5 F 62 18 116/45 L 100 02/07/17 15:56 02/07/17 15:56 02/07/17 15:56 02/07/17 15:56 02/07/17 15:56 Intake & Output 02/06/17 02/07/17 02/08/17 06:59 06:59 06:59 Intake Total 3250 1380 Output Total 1100 Balance 2150 1380 Weight 50.4 kg 50.4 kg Exam: General: Awake alert and oriented 1 (to self alone); no acute respiratory distress HEENT: AT/NC, PERRL, EOMI, oropharynx is moist, pink, no scleral icterus, no conjunctival injection Neck: No JVD, trachea midline Chest: Clear to auscultation bilaterally, no wheezes rhonchi or rales CV: normal S1 and S2, 2/6 murmur; no rub or gallop Abdomen: Soft, mildly to palpation, mildly distended, active bowel sounds; no rebound, rigidity, or guarding Extremities: No cyanosis, clubbing or edema Neuro: Cranial nerves II through XII are grossly intact without focal deficits Psych: Agitated Results Laboratory Results: 02/06/17 04:15 02/06/17 04:15 Impressions: Chest X-Ray 02/03/17 17:56 IMPRESSION: NO SIGNIFICANT RADIOGRAPHIC FINDING IN THE CHEST. Assessment & Plan - Diagnosis (1) Sepsis Qualifiers: Sepsis type: sepsis due to unspecified organism Qualified Code(s): A41.9 - Sepsis, unspecified organism Is this a current diagnosis for this admission?: YesPlan: Patient septic secondary to C. difficile. Maintain a map of 65. Patient normally has hypertension. All antihypertensives are on hold. (2) Clostridium difficile diarrhea Is this a current diagnosis for this admission?: YesPlan: On Flagyl day #4 and on Vancocin day #3 she does meet sepsis criteria. (3) Hyponatremia Is this a current diagnosis for this admission?: YesPlan: Likely secondary to intravascular volume depletion. (4) Hyperlipidemia Qualifiers: Hyperlipidemia type: unspecified Qualified Code(s): E78.5 - Hyperlipidemia, unspecified Is this a current diagnosis for this admission?: YesPlan: Continue statin (5) Hypoglycemia Is this a current diagnosis for this admission?: Yes (6) Hypomagnesemia Is this a current diagnosis for this admission?: Yes (7) Hypothyroidism Qualifiers: Hypothyroidism type: unspecified Qualified Code(s): E03.9 - Hypothyroidism, unspecified Is this a current diagnosis for this admission?: YesPlan: TSH and free T4 is normal (8) Senile dementia of Alzheimer's type Is this a current diagnosis for this admission?: YesPlan: Continue supportive care and bed alarm. Given patient's current outburst of agitation will give her Risperdal twice a day (9) Syncope Qualifiers: Syncope type: vasovagal syncope Qualified Code(s): R55 - Syncope and collapse Is this a current diagnosis for this admission?: YesPlan: Likely secondary to orthostasis. Continue to hold antihypertensives (10) Type II diabetes mellitus Qualifiers: Diabetes mellitus complication status: with unspecified complications Diabetes mellitus halfway insulin use: without continuous churn buttermaker use Qualified Code(s): E11.8 - Type 2 diabetes mellitus with unspecified complications Is this a current diagnosis for this admission?: YesPlan: Stop sliding scale insulin. Patient currently with poor oral intake. (11) UTI (urinary tract infection) Qualifiers: Urinary tract infection type: acute cystitis Hematuria presence: without hematuria Qualified Code(s): N30.00 - Acute cystitis without hematuria Is this a current diagnosis for this admission?: YesPlan: Pending culture. Patient on Rocephin day #4. Patient currently not growing any organisms. - Time Time Spent with patient: 25-34 minutes Medications reviewed and adjusted accordingly: Yes Anticipated discharge: Home Within: within 48 hours
[2017-02-07] MEDS ORDERED: RISPERIDONE 0.25 MG TABLET PO SCH (18:00)
[2017-02-07] MEDS: CEFTRIAXONE 1 GM/D5W RTU 1 GM/50 ML RTUPB IV SCH (22:53)
[2017-02-08] MEDS: METRONIDAZOLE 500 MG TABLET PO SCH ×3 (05:58→17:40)
[2017-02-08] MEDS: LANSOPRAZOLE 30 MG TAB.RAP.DR PO SCH ×2 (05:58→17:40)
[2017-02-08] MEDS: VANCOMYCIN HCL INJ 500 MG VIAL PO SCH ×3 (05:58→17:40)
[2017-02-08] MEDS ORDERED: NORMAL SALINE 1000 ML 1,000 ML IV ONE (09:47)
[2017-02-08] MEDS: LACTOBACILLUS ACIDOPHILUS 250 MG TAB PO SCH ×2 (10:55→17:40)
[2017-02-08] MEDS: DONEPEZIL HCL 5 MG TABLET PO SCH (10:56)
[2017-02-08] MEDS: CLOPIDOGREL BISULFATE 75 MG TABLET PO SCH (10:56)
[2017-02-08] MEDS: METOPROLOL TARTRATE 50 MG TABLET PO SCH ×2 (13:14→23:12)
--- NOTE | 2017-02-08 15:48 | PDOC PROGRESS REPORT ---
Subjective Progress Note for:: 02/08/17 Subjective:: Patient seen earlier on morning rounds. Patient quite lethargic this morning. No stool since yesterday evening. Patient denies chest pain, shortness of breath, abdominal pain, nausea, vomiting , fevers, chills, diarrhea, constipation, headache, new onset weakness. Physical Exam Vital Signs: Temp Pulse Resp BP Pulse Ox 99.0 F 63 16 128/60 H 99 02/08/17 03:56 02/08/17 03:56 02/08/17 03:56 02/08/17 03:56 02/08/17 03:56 Intake & Output 02/07/17 02/08/17 02/09/17 06:59 06:59 06:59 Intake Total 1380 450 Balance 1380 450 Weight 50.4 kg Exam: General: Sleepy but arousable; no acute respiratory distress HEENT: AT/NC, PERRL, EOMI, oropharynx is moist, pink, no scleral icterus, no conjunctival injection Neck: No JVD, trachea midline Chest: Clear to auscultation bilaterally, no wheezes rhonchi or rales CV: normal S1 and S2, 2/6 murmur; no rub or gallop Abdomen: Soft, nontender palpation, nondistended, active bowel sounds; no rebound, rigidity, or guarding Extremities: No cyanosis, clubbing or edema Neuro: Cranial nerves II through XII are grossly intact without focal deficits Psych: Pleasant but somewhat lethargic Results Laboratory Results: 02/06/17 04:15 02/06/17 04:15 Impressions: Chest X-Ray 02/03/17 17:56 IMPRESSION: NO SIGNIFICANT RADIOGRAPHIC FINDING IN THE CHEST. Assessment & Plan - Diagnosis (1) Acute encephalopathy Is this a current diagnosis for this admission?: YesPlan: At this time, likely secondary to medication, dementia, and sepsis. Improving, but not quite to baseline. (2) Sepsis Qualifiers: Sepsis type: sepsis due to unspecified organism Qualified Code(s): A41.9 - Sepsis, unspecified organism Is this a current diagnosis for this admission?: YesPlan: Patient septic secondary to C. difficile. Maintain a map of 65. Patient normally has hypertension. Antihypertensives are on hold. (3) Clostridium difficile diarrhea Is this a current diagnosis for this admission?: YesPlan: On Flagyl day #5 and on Vancocin day #4 she does meet sepsis criteria. Continue probiotic (4) Hyponatremia Is this a current diagnosis for this admission?: YesPlan: Improved Likely secondary to intravascular volume depletion. (5) Hyperlipidemia Qualifiers: Hyperlipidemia type: unspecified Qualified Code(s): E78.5 - Hyperlipidemia, unspecified Is this a current diagnosis for this admission?: YesPlan: Continue statin (6) Hypoglycemia Is this a current diagnosis for this admission?: YesPlan: Accu-Cheks every before meals and at bedtime if needed. Discussed with patient's son and he reports that on her insulin regimen at home that her blood sugars between 80 and 118. (7) Hypomagnesemia Is this a current diagnosis for this admission?: Yes (8) Hypothyroidism Qualifiers: Hypothyroidism type: unspecified Qualified Code(s): E03.9 - Hypothyroidism, unspecified Is this a current diagnosis for this admission?: YesPlan: TSH and free T4 is normal (9) Senile dementia of Alzheimer's type Is this a current diagnosis for this admission?: YesPlan: Continue supportive care and bed alarm. Given patient's current outburst of agitation will give her Risperdal daily at bedtime (10) Type II diabetes mellitus Qualifiers: Diabetes mellitus complication status: with unspecified complications Diabetes mellitus usp insulin use: without health program manager use Qualified Code(s): E11.8 - Type 2 diabetes mellitus with unspecified complications; Z79.4 - [facility] (current) use of insulin Is this a current diagnosis for this admission?: Yes (11) UTI (urinary tract infection) Qualifiers: Urinary tract infection type: acute cystitis Hematuria presence: without hematuria Qualified Code(s): N30.00 - Acute cystitis without hematuria Is this a current diagnosis for this admission?: YesPlan: Pending culture. Patient on Rocephin day #5. Patient currently not growing any organisms. Will stop antibiotic after today. (12) Syncope Qualifiers: Syncope type: vasovagal syncope Qualified Code(s): R55 - Syncope and collapse Is this a current diagnosis for this admission?: Yes - Time Time Spent with patient: 35 or more minutes Medications reviewed and adjusted accordingly: Yes Anticipated discharge: Home Within: within 24 hours
[2017-02-08] MEDS ORDERED: ZINC OXIDE 20% OINTMENT 28.35 GM TP PRN (18:20)
[2017-02-08] MEDS ORDERED: PRAMOXINE HCL/MINERAL OIL/ZNOX OINT 28.3 GM PR PRN (18:20)
[2017-02-09] MEDS: VANCOMYCIN HCL INJ 500 MG VIAL PO SCH ×4 (00:57→17:42)
[2017-02-09] MEDS: METRONIDAZOLE 500 MG TABLET PO SCH ×4 (00:57→17:43)
[2017-02-09] MEDS: LANSOPRAZOLE 30 MG TAB.RAP.DR PO SCH ×2 (06:36→17:43)
[2017-02-09] MEDS: METOPROLOL TARTRATE 50 MG TABLET PO SCH (09:39)
[2017-02-09] MEDS: DONEPEZIL HCL 5 MG TABLET PO SCH (09:39)
[2017-02-09] MEDS: CLOPIDOGREL BISULFATE 75 MG TABLET PO SCH (09:39)
[2017-02-09] MEDS: LACTOBACILLUS ACIDOPHILUS 250 MG TAB PO SCH ×2 (09:40→17:43)
[2017-02-09 10:23] LABS: ANION GAP 12 (5-19); BLOOD UREA NITROGEN 9 mg/dL (7-20); CALCIUM 8.4 mg/dL (8.4-10.2); CARBON DIOXIDE 25 mmol/L (22-30); CHLORIDE 102 mmol/L (98-107); CREATININE RESULT 1.02 mg/dL (0.52-1.25); GLUCOSE 149 mg/dL (75-110); POTASSIUM 3.5 mmol/L (3.6-5.0)
[2017-02-09] MEDS ORDERED: MEGESTROL ACETATE SUSP 400 MG/10 ML UDCUP PO ONE (11:30)
[2017-02-09] MEDS ORDERED: RISPERIDONE 0.25 MG TABLET PO ONE (11:30)
[2017-02-09] MEDS ORDERED: CHOLESTYRAMINE/ASPARTAME 4 GM PACKET PO ONE (15:57)
--- NOTE | 2017-02-09 16:22 | PDOC PROGRESS REPORT ---
Subjective Progress Note for:: 02/09/17 Subjective:: Patient seen earlier on morning rounds. Patient quite upset this morning. Patient still is becoming more firm. Patient denies chest pain, shortness of breath, abdominal pain, nausea, vomiting , fevers, chills, constipation, headache, new onset weakness. Physical Exam Vital Signs: Temp Pulse Resp BP Pulse Ox 98.0 F 75 16 110/45 L 98 02/09/17 12:00 02/09/17 12:00 02/09/17 12:00 02/09/17 12:00 02/09/17 12:00 Intake & Output 02/08/17 02/09/17 02/10/17 06:59 06:59 06:59 Intake Total 850 1897 355 Balance 850 1897 355 Weight 48.9 kg 48.1 kg Exam: General: Awake alert and oriented 1; no acute respiratory distress HEENT: AT/NC, PERRL, EOMI, oropharynx is moist, pink, no scleral icterus, no conjunctival injection Neck: No JVD, trachea midline Chest: Clear to auscultation bilaterally, no wheezes rhonchi or rales CV: normal S1 and S2, 2/6 murmur; no rub or gallop Abdomen: Soft, nontender palpation, nondistended, active bowel sounds; no rebound, rigidity, or guarding Extremities: No cyanosis, clubbing or edema Neuro: Cranial nerves II through XII are grossly intact without focal deficits Psych: Agitated Results Laboratory Results: 02/06/17 04:15 02/09/17 09:42 02/09/17 09:42 Sodium 139.0 Potassium 3.5 L Chloride 102 Carbon Dioxide 25 Anion Gap 12 BUN 9 Creatinine 1.02 Est GFR ( Amer) > 60 Est GFR (Non-Af Amer) 53 L Glucose 149 H Calcium 8.4 Impressions: Chest X-Ray 02/03/17 17:56 IMPRESSION: NO SIGNIFICANT RADIOGRAPHIC FINDING IN THE CHEST. Assessment & Plan - Diagnosis (1) Acute encephalopathy Is this a current diagnosis for this admission?: YesPlan: At this time, likely secondary to medication, dementia, and sepsis. Improving, but not quite to baseline according to family. (2) Sepsis Qualifiers: Sepsis type: sepsis due to unspecified organism Qualified Code(s): A41.9 - Sepsis, unspecified organism Is this a current diagnosis for this admission?: YesPlan: Patient septic secondary to C. difficile. Maintain a map of 65. Patient normally has hypertension. Antihypertensives are on hold. (3) Clostridium difficile diarrhea Is this a current diagnosis for this admission?: YesPlan: On Flagyl day #6 and on Vancocin day #5 she does meet sepsis criteria. Continue probiotic. (4) Hyponatremia Is this a current diagnosis for this admission?: YesPlan: Improved Likely secondary to intravascular volume depletion. (5) Hyperlipidemia Qualifiers: Hyperlipidemia type: unspecified Qualified Code(s): E78.5 - Hyperlipidemia, unspecified Is this a current diagnosis for this admission?: YesPlan: Continue statin (6) Hypoglycemia Is this a current diagnosis for this admission?: YesPlan: Accu-Cheks every before meals and at bedtime if needed. Discussed with patient's son and he reports that on her insulin regimen at home that her blood sugars between 80 and 118. A1c of 6.4. (7) Hypomagnesemia Is this a current diagnosis for this admission?: YesPlan: Currently repleted (8) Hypothyroidism Qualifiers: Hypothyroidism type: unspecified Qualified Code(s): E03.9 - Hypothyroidism, unspecified Is this a current diagnosis for this admission?: YesPlan: TSH and free T4 is normal (9) Senile dementia of Alzheimer's type Is this a current diagnosis for this admission?: YesPlan: Continue supportive care and bed alarm. Given patient's current outburst of agitation will give her Risperdal daily at bedtime (10) Type II diabetes mellitus Qualifiers: Diabetes mellitus complication status: with unspecified complications Diabetes mellitus termite exterminator helper insulin use: without fdc use Qualified Code(s): E11.8 - Type 2 diabetes mellitus with unspecified complications; Z79.4 - correction (current) use of insulin Is this a current diagnosis for this admission?: YesPlan: Stop sliding scale insulin. Patient currently with poor oral intake. Will initiate Megace (11) UTI (urinary tract infection) Qualifiers: Urinary tract infection type: acute cystitis Hematuria presence: without hematuria Qualified Code(s): N30.00 - Acute cystitis without hematuria Is this a current diagnosis for this admission?: YesPlan: Pending culture. Patient completed 5 days of Rocephin. Patient currently not growing any organisms. (12) Syncope Qualifiers: Syncope type: vasovagal syncope Qualified Code(s): R55 - Syncope and collapse Is this a current diagnosis for this admission?: Yes - Time Time Spent with patient: 25-34 minutes Medications reviewed and adjusted accordingly: Yes Anticipated discharge: Home Within: within 24 hours
[2017-02-10] MEDS: METOPROLOL TARTRATE 50 MG TABLET PO SCH ×2 (00:46→09:56)
[2017-02-10] MEDS: METRONIDAZOLE 500 MG TABLET PO SCH ×2 (00:46→06:59)
[2017-02-10] MEDS: VANCOMYCIN HCL INJ 500 MG VIAL PO SCH ×2 (00:46→06:57)
[2017-02-10] MEDS: LANSOPRAZOLE 30 MG TAB.RAP.DR PO SCH (06:59)
[2017-02-10 08:37] VITALS: BP 118/41
[2017-02-10] MEDS: LACTOBACILLUS ACIDOPHILUS 250 MG TAB PO SCH (09:55)
[2017-02-10] MEDS: CLOPIDOGREL BISULFATE 75 MG TABLET PO SCH (09:56)
[2017-02-10] MEDS: DONEPEZIL HCL 5 MG TABLET PO SCH (09:56)
[2017-02-10] MEDS ORDERED: MEGESTROL ACETATE SUSP 400 MG/10 ML UDCUP PO SCH (10:00)
--- NOTE | 2017-02-10 10:12 | PDOC DISCHARGE SUMMARY ---
General - Admit/Disc Date/PCP Admission Date/Primary Care Provider: 02/05/17 08:03 Discharge Date: 02/10/17 - Discharge Diagnosis (1) Sepsis Is this a current diagnosis for this admission?: Yes (2) Clostridium difficile diarrhea Is this a current diagnosis for this admission?: Yes (3) Hyponatremia Is this a current diagnosis for this admission?: Yes (4) Gastroesophageal reflux disease Is this a current diagnosis for this admission?: Yes (5) Hyperlipidemia Is this a current diagnosis for this admission?: Yes (6) Hypertension Is this a current diagnosis for this admission?: Yes (7) Hypothyroidism Is this a current diagnosis for this admission?: Yes (8) Senile dementia of Alzheimer's type Is this a current diagnosis for this admission?: Yes (9) Type II diabetes mellitus Is this a current diagnosis for this admission?: Yes - Additional Information Discharge Diet: Cardiac - low-fat low-salt Discharge Activity: Activity As Tolerated, Balance Activity w/Rest Home Medications: Atorvastatin Calcium [Lipitor 80 mg Tablet] 80 mg PO DAILY #30 tablet 02/09/17 Clopidogrel Bisulfate [Plavix 75 mg Tablet] 75 mg PO DAILY #30 tablet 02/09/17 Donepezil HCl [Aricept] 10 mg PO DAILY #30 tablet 02/09/17 Metoprolol Tartrate [Lopressor 50 mg Tablet] 50 mg PO Q12 #60 tablet 02/09/17 Pramoxine HCl/Mineral Oil/Znox [Tucks Hemorrhoidal Ointment 28.3 gm] 1 applic DE PRN PRN #1 tube 02/09/17 Risperidone [Risperdal 0.25 mg Tablet] 0.25 mg PO QHS #30 tablet 02/09/17 Acidoph/L.bulg/Bif.b/S.thermop [Bacid Caplet] 1 each PO DAILY #20 tablet Metronidazole [Flagyl 500 mg Tablet] 500 mg PO Q6 #32 tablet 02/10/17 Vancomycin HCl [Vancocin HCl] 125 mg PO Q6H #32 capsule 02/10/17 History of Present Illness Patient complains of: Diarrhea and nausea and vomiting History of Present Illness: NARAYAN CROSS is a 72 year old female, with history of coronary artery disease, hypertension, hyperlipidemia, type II diabetes mellitus diet controlled brought to the hospital by the family due to nausea vomiting and confusion. Patient has an underlying dementia but still able to communicate. Reliability however is a question. She was diagnosed last week by her physician with Clostridium difficile colitis. She was having diarrhea for several days with decreased oral intake. Reportedly the diarrhea persisted and for the past 2-3 days the patient started to develop nausea and vomiting. The patient denies abdominal pain, shortness of breath, chills or fever. She stated that she go to the [facility] about 3 times per day to move her bowels, and when asked when was the last time she had a bowel movement, she reports was 2 days ago. In the emergency room no diarrhea still reported. Sodium level is low. WBC was normal. Patient was referred for admission. Hospital Course Hospital Course: The patient was admitted to telemetry. Patient reportedly with hypotension. Clostridium difficile toxin was positive. Patient initially began on intravenous fluids, as well as lactobacillus and Flagyl. Vancomycin was added to the treatment regimen. Urinalysis was abnormal, patient was started on ceftriaxone as well. Urine culture eventually turned out to be negative, ceftriaxone was discontinued. Patient continues to have diarrhea, but eventually improved upon discontinuation of her ceftriaxone. Last diarrhea was 2 days ago. In terms of hyponatremia with hydration it has improved. Patient has history of hypertension and she was continued on her beta annette. Her diuretic was discontinued. Patient on discharge was feeling well, without any discomfort. Reportedly her diarrhea resolved and the last one was 2 days prior to discharge. Patient tolerating oral intake well. The rest of the hospital station unremarkable. Physical Exam Vital Signs: Temp Pulse Resp BP Pulse Ox 98.0 F 60 18 118/41 L 100 02/10/17 08:00 02/10/17 08:00 02/10/17 08:00 02/10/17 08:00 02/10/17 08:00 Intake & Output 02/09/17 02/10/17 02/11/17 06:59 06:59 06:59 Intake Total 1897 1191 Balance 1897 1191 Weight 48.1 kg 47.9 kg General appearance: PRESENT: no acute distress, cooperative Head exam: PRESENT: normocephalic Eye exam: PRESENT: EOMI Mouth exam: PRESENT: moist, neck supple Neck exam: ABSENT: JVD Respiratory exam: PRESENT: clear to auscultation jaimie Cardiovascular exam: PRESENT: RRR. ABSENT: gallop GI/Abdominal exam: PRESENT: soft. ABSENT: distended, tenderness Extremities exam: ABSENT: pedal edema Neurological exam: PRESENT: alert, awake Skin exam: PRESENT: dry, warm. ABSENT: cyanosis Results Laboratory Results: 02/06/17 04:15 02/09/17 09:42 02/09/17 09:42 Sodium 139.0 Potassium 3.5 L Chloride 102 Carbon Dioxide 25 Anion Gap 12 BUN 9 Creatinine 1.02 Est GFR ( Amer) > 60 Est GFR (Non-Af Amer) 53 L Glucose 149 H Calcium 8.4 Impressions: Chest X-Ray 02/03/17 17:56 IMPRESSION: NO SIGNIFICANT RADIOGRAPHIC FINDING IN THE CHEST. Qualifiers PATEINT BEING DISCHARGED WITH ANY OF THE FOLLOWING DIAGNOSIS?: No Plan Discharge Plan: Follow-up with primary care physician in 5 days. Time Spent: Less than 30 Minutes
== END 2017-02-10 12:45 | disposition home health service (06) | DRG 872 ==
LOC: ER 11:50 → EH 17:53 → UNDOADMOB 18:12 → 4N 02-04 01:30 → OBSVTOIN 02-05 08:03
DX: A41.9 Sepsis, unspecified organism (principal); A04.7 Enterocolitis due to Clostridium difficile; E87.1 Hypo-osmolality and hyponatremia; N30.00 Acute cystitis without hematuria; K21.9 Gastro-esophageal reflux disease without esophagitis; E78.5 Hyperlipidemia, unspecified; I10 Essential (primary) hypertension; E03.9 Hypothyroidism, unspecified; G30.1 Alzheimer's disease with late onset; F02.80 Dementia in other diseases classified elsewhere, unspecified severity, without behavioral disturbance, psychotic disturbance, mood disturbance, and anxiety; I25.10 Atherosclerotic heart disease of native coronary artery without angina pectoris; M19.90 Unspecified osteoarthritis, unspecified site; E11.649 Type 2 diabetes mellitus with hypoglycemia without coma; E83.42 Hypomagnesemia; Z79.899 Other long term (current) drug therapy; Z95.5 Presence of coronary angioplasty implant and graft; Z95.0 Presence of cardiac pacemaker; Z90.710 Acquired absence of both cervix and uterus; Z83.3 Family history of diabetes mellitus; Z82.49 Family history of ischemic heart disease and other diseases of the circulatory system
CPT/HCPCS: 36415; 71020; 80048; 80053; 81001; 82150; 82553; 82962; 83036; 83690; 83735; 84439; 84443; 84484; 85025; 87045; 87086; 87205; 87493; 93005; 93010; 96361; 96365; 96372; 99285; G0378; G8978-GP; G8979-GP; G8980-GP; J0696; J1650; J3370; J3475; J3480; J3490; J7030

== ENCOUNTER 2017-06-29 17:01 | Emergency (ER) | payer MEDICARE, MEDICAID ==
[2017-06-29] MEDS ORDERED: ACETAMINOPHEN WITH CODEINE #3 TABLET PO ONE (17:17)
--- NOTE | 2017-06-29 17:23 | ER Document Report ---
ED General - General Stated Complaint: FALL/HEAD INJURY Time Seen by Provider: 06/29/17 17:09 Mode of Arrival: Medic Information source: Patient, Emergency Med Personnel Notes: 72-year-old female who is on Plavix presents after a mechanical fall striking her forehead. Patient has a large hematoma to the right frontal abrasion to her nose. Patient denies any chest pain shortness breath difficulty breathing or passing out. TRAVEL OUTSIDE OF THE [place] IN LAST 30 DAYS: No - HPI Onset: Just prior to arrival Onset/Duration: Sudden Quality of pain: Achy Severity: Mild Pain Level: 1 Associated symptoms: Headache Exacerbated by: Denies Relieved by: Denies Similar symptoms previously: Yes Recently seen / treated by doctor: Yes - Related Data Allergies/Adverse Reactions: No Known Allergies Allergy (Verified 06/29/17 17:21) Home Medications: Current Home Medications Dicyclomine HCl [Bentyl 10 mg Capsule] 1 cap PO TID PRN 06/29/17 [History] Past Medical History - Social History Smoking Status: Never Smoker Cigarette use (# per day): No Chew tobacco use (# tins/day): No Smoking Education Provided: No Family History: DM, Hypertension, Other - Heart disease - Past Medical History Cardiac Medical History: Reports: Hx Coronary Artery Disease, Hx Hypercholesterolemia, Hx Hypertension Denies: Hx DVT, Hx Heart Attack Pulmonary Medical History: Denies: Hx Asthma, Hx COPD Neurological Medical History: Denies: Hx Cerebrovascular Accident, Hx Migraine, Hx Seizures Endocrine Medical History: Reports: Hx Diabetes Mellitus Type 1 - NIDDM, Hx Diabetes Mellitus Type 2 - INSULIN DEPENDENT, Hx Hypothyroidism Renal/ Medical History: Denies: Hx Peritoneal Dialysis GI Medical History: Reports: Hx Gastroesophageal Reflux Disease. Denies: Hx Hepatitis, Hx Hiatal Hernia, Hx Ulcer Musculoskeltal Medical History: Reports Hx Arthritis - osteoarthritis Psychiatric Medical History: Denies: Hx Depression Infectious Medical History: Reports: Hx C-Diff. Denies: Hx Hepatitis Past Surgical History: Reports: Hx Cardiac Catheterization - STENT, PACEMAKER, Hx Coronary Stent, Hx Hysterectomy, Hx Orthopedic Surgery - toes, Other - Pacemaker implant. Denies: Hx Mastectomy, Hx Open Heart Surgery, Hx Pacemaker - Immunizations Immunizations up to date: Yes Hx Diphtheria, Pertussis, Tetanus Vaccination: Yes Review of Systems - Review of Systems Notes: REVIEW OF SYSTEMS: CONSTITUTIONAL : Denies fever, chills, or sweats. Denies recent illness. EENT: admits to nose pain CARDIOVASCULAR: Denies chest pain. Denies palpitations or racing or irregular heart beat. Denies ankle edema. RESPIRATORY: Denies cough, cold, or chest congestion. Denies shortness of breath, difficulty breathing, or wheezing. GASTROINTESTINAL: Denies abdominal pain or distention. Denies nausea, vomiting , or diarrhea. Denies blood in vomitus, stools, or per rectum. Denies black, tarry stools. Denies constipation. GENITOURINARY: Denies difficulty urinating, painful urination, burning, frequency, blood in urine, or discharge. FEMALE GENITOURINARY: Denies vaginal bleeding, heavy or abnormal periods, irregular periods. Denies vaginal discharge or odor. MUSCULOSKELETAL: Denies back or neck pain or stiffness. Denies joint pain or swelling. SKIN: Denies rash, lesions or sores. HEMATOLOGIC : Denies easy bruising or bleeding. LYMPHATIC: Denies swollen, enlarged glands. NEUROLOGICAL: admits ot headache PSYCHIATRIC: Denies anxiety or stress. Denies depression, suicidal ideation, or homicidal ideation. ALL OTHER SYSTEMS REVIEWED AND NEGATIVE. PHYSICAL EXAMINATION: GENERAL: Well-appearing, well-nourished and in no acute distress. HEAD: large hematoma right frontal EYES: Pupils equal round and reactive to light, extraocular movements intact, conjunctiva are normal. ENT: abrasion t onasal bridge Nares patent, oropharynx clear without exudates. Moist mucous membranes. NECK: Normal range of motion, supple without lymphadenopathy LUNGS: Breath sounds clear to auscultation bilaterally and equal. No wheezes rales or rhonchi. HEART: Regular rate and rhythm without murmurs ABDOMEN: Soft, nontender, nondistended abdomen. No guarding, no rebound. No masses appreciated. Female : deferred Musculoskeletal: Normal range of motion, no pitting or edema. No cyanosis. NEUROLOGICAL: Cranial nerves grossly intact. Normal speech, normal gait. Normal sensory, motor exams PSYCH: Normal mood, normal affect. SKIN: frontal hematoma with abrasions Dictation was performed using [employer] voice recognition software Physical Exam - Vital signs Vitals: Temp Pulse Resp BP Pulse Ox 97.7 F 73 20 152/114 H 99 06/29/17 17:10 06/29/17 17:10 06/29/17 17:10 06/29/17 17:10 06/29/17 17:10 Course - Re-evaluation Re-evalutation: 06/29/17 17:20 Patient is completely neurologically intact alert oriented she is following commands with no difficulty. As a result of her presentation she is immediately sent for CT 06/29/17 21:02 CT imaging noted no significant abnormality, patient otherwise appears well, there is obvious contusion with hematoma and abrasions which will be dressed with Xeroform dressing. After performing a Medical Screening Examination, I estimate there is LOW risk for ACUTE GLAUCOMA, TEMPORAL ARTERITIS, MENINGITIS, INCRANIAL HEMORRHAGE, or ISCHEMIC STROKE thus I consider the discharge disposition reasonable. I have reevaluated this patient multiple times and no significant life threatening changes are noted. The patient and I have discussed the diagnosis and risks, and we agree with discharging home with close follow-up with the understanding that symptoms and presentations can change. We also discussed returning to the Emergency Department immediately if new or worsening symptoms occur. We have discussed the symptoms which are most concerning (e.g., changing or worsening symptoms, new numbness or weakness, vomiting, fever) that necessitate immediate return. - Vital Signs Vital signs: Temp Pulse Resp BP Pulse Ox 98.0 F 64 20 112/52 L 97 06/29/17 20:47 06/29/17 20:47 06/29/17 20:47 06/29/17 20:47 06/29/17 20:47 - Diagnostic Test Radiology reviewed: Image reviewed, Reports reviewed Discharge - Discharge Clinical Impression: Fall Qualifiers: Encounter type: initial encounter Qualified Code(s): W19.XXXA - Unspecified fall, initial encounter Head injury due to trauma Qualifiers: Encounter type: initial encounter Qualified Code(s): S09.90XA - Unspecified injury of head, initial encounter Hematoma of frontal scalp Qualifiers: Encounter type: initial encounter Qualified Code(s): S00.03XA - Contusion of scalp, initial encounter Condition: Stable Disposition: HOME, SELF-CARE Instructions: Scalp Hematoma ([facility]) Additional Instructions: Follow up with your physician tomorrow for further care or return to the ED IMMEDIATELY if symptoms worsen or new concerns occur. If you cannot afford to follow up with your primary care physician a list of low cost clinics have been provided at the end of your discharge papers as well. Prescriptions: Acetaminophen with Codeine [Tylenol #3 Tablet] 1 each PO Q4HP PRN #14 tablet PRN Reason:
--- NOTE | 2017-06-29 17:31 | RADIOLOGY REPORT (SQ) ---
EXAM DESCRIPTION: CT HEAD WITHOUT COMPLETED DATE/TIME: 06/29/2017 5:23 pm REASON FOR STUDY: fall COMPARISON: 07/30/2016 TECHNIQUE: Axial images acquired through the brain without intravenous contrast. Images reviewed wi th bone, brain and subdural windows. Images stored on PACS. All CT scanners at this facility use dose modulation, iterative reconstruction, and/or weight based d osing when appropriate to reduce radiation dose to as low as reasonably achievable (ALARA). [facility]: Dose Right [facility]: CareDose [facility]: Dose Right [facility]: Teradose 4D [facility]: Smart [employer] RADIATION DOSE: mGy. LIMITATIONS: None. FINDINGS: VENTRICLES: Prominent. CEREBRUM: No masses. No hemorrhage. No midline shift. Areas of low density in the white matter mos t likely due to chronic micro-vascular ischemic change. No evidence for acute infarction. CEREBELLUM: No masses. No hemorrhage. No alteration of density. No evidence for acute infarction. EXTRAAXIAL SPACES: Mild age-related involutional change. No fluid collections. No masses. ORBITS AND GLOBE: No intra- or extraconal masses. Normal contour of globe without masses. CALVARIUM: No fracture. PARANASAL SINUSES: No fluid or mucosal thickening. SOFT TISSUES: There is a large soft tissue hematoma overlying the right frontal bone. OTHER: No other significant finding. IMPRESSION: 1. Atrophy and small-vessel ischemic changes. No acute intracranial event. 2. Large right frontal hematoma. No underlying fracture. TECHNICAL DOCUMENTATION: JOB ID: [id number] Quality ID # [id number]: Final reports with documentation of one or more dose reduction techniques (e.g., Au tomated exposure control, adjustment of the mA and/or kV according to patient size, use of iterative reconstruction technique) 2010 [employer]- All Rights Reserved
--- NOTE | 2017-06-29 17:48 | RADIOLOGY REPORT (SQ) ---
EXAM DESCRIPTION: CT CERVICAL SPINE WITHOUT COMPLETED DATE/TIME: 06/29/2017 5:37 pm REASON FOR STUDY: fall COMPARISON: None. TECHNIQUE: Axial images acquired through the cervical spine without intravenous contrast. Images re viewed with lung, soft tissue and bone windows. Reconstructed coronal and sagittal MPR images review ed. Images stored on PACS. All CT scanners at this facility use dose modulation, iterative reconstruction, and/or weight based d osing when appropriate to reduce radiation dose to as low as reasonably achievable (ALARA). [facility]: Dose Right [facility]: CareDose [facility]: Dose Right [facility]: Teradose 4D [facility]: [employer] RADIATION DOSE: Up-to-date CT equipment and radiation dose reduction techniques were employed. CTDIv ol: 10.8 mGy. DLP: 198 mGy-cm. mGy. LIMITATIONS: None. FINDINGS: ALIGNMENT: Anatomic. MINERALIZATION: Normal. VERTEBRAL BODIES: No fractures or dislocation. DISCS: Multilevel disc space narrowing with osteophytes. FACETS, LATERAL MASSES, POSTERIOR ELEMENTS: Facet arthropathy. No fractures. No dislocation. No ac anastsaiya findings. HARDWARE: None in the spine. VISUALIZED RIBS: No fractures. LUNG APICES AND SOFT TISSUES: No significant or acute findings. OTHER: No other significant finding. IMPRESSION: CHRONIC DEGENERATIVE CHANGES. NO ACUTE FINDINGS. TECHNICAL DOCUMENTATION: JOB ID: [id number] Quality ID # [id number]: Final reports with documentation of one or more dose reduction techniques (e.g., Au tomated exposure control, adjustment of the mA and/or kV according to patient size, use of iterative reconstruction technique) 2010 [employer]- All Rights Reserved
--- NOTE | 2017-06-29 17:49 | RADIOLOGY REPORT (SQ) ---
EXAM DESCRIPTION: CT FACIAL AREA WITHOUT COMPLETED DATE/TIME: 06/29/2017 5:37 pm REASON FOR STUDY: fall COMPARISON: None. TECHNIQUE: Noncontrasted images through the facial bones and orbits windowed for bone and soft tissu e. Additional coronal and sagittal reconstructed images reviewed. All images stored on PACS. All CT scanners at this facility use dose modulation, iterative reconstruction, and/or weight based d osing when appropriate to reduce radiation dose to as low as reasonably achievable (ALARA). [facility]: Dose Right [facility]: CareDose [facility]: Dose Right [facility]: Teradose 4D [facility]: [employer] RADIATION DOSE: Up-to-date CT equipment and radiation dose reduction techniques were employed. CTDIv ol: 30.4 mGy. DLP: 507 mGy-cm. mGy. LIMITATIONS: None. FINDINGS: FACIAL BONES: No fracture or bone lesion. ORBITS: Intact. No fracture. Symmetric intact globes and retroorbital soft tissues. PARANASAL SINUSES: Clear. No significant mucosal thickening, mass or fluid. No nasal polyps. Maxill meaghan sinus outlets are patent. SOFT TISSUES: Soft tissue hematoma in the right side of forehead. INFERIOR BRAIN: Limited view. No acute findings. OTHER: No other significant finding. IMPRESSION: SOFT TISSUE HEMATOMA IN THE RIGHT SIDE OF THE FOREHEAD. NO FACIAL BONE FRACTURES. TECHNICAL DOCUMENTATION: JOB ID: [id number] Quality ID # [id number]: Final reports with documentation of one or more dose reduction techniques (e.g., Au tomated exposure control, adjustment of the mA and/or kV according to patient size, use of iterative reconstruction technique) 2010 [employer]- All Rights Reserved
[2017-06-29 20:48] VITALS: BP 112/52
== END 2017-06-29 21:05 | disposition home or self-care (01) ==
LOC: ER 17:01
DX: S09.90XA Unspecified injury of head, initial encounter (principal); S00.03XA Contusion of scalp, initial encounter; S00.31XA Abrasion of nose, initial encounter; W19.XXXA Unspecified fall, initial encounter; Z79.899 Other long term (current) drug therapy
CPT/HCPCS: 99285; 70450; 70486; 72125; A9270

== ENCOUNTER 2017-07-01 11:36 | Emergency (ER) | payer MEDICARE, MEDICAID ==
[2017-07-01 11:59] VITALS: BP 127/59
--- NOTE | 2017-07-01 12:31 | ER Document Report ---
ED General - General Chief Complaint: Fall Injury Stated Complaint: FALL/HEAD INJURY Time Seen by Provider: 07/01/17 11:51 Mode of Arrival: Medic Information source: Patient, Relative Notes: 72-year-old female on blood thinner who fell 2 days prior and was seen by myself presents with son with concerns of facial swelling. Patient had a large hematoma 2 days prior and I had explained to the patient who has dementia that there would be facial swelling and the eyes with be difficult to open TRAVEL OUTSIDE OF THE [place] IN LAST 30 DAYS: No - HPI Onset: Other - 2 day duration Onset/Duration: Persistent Quality of pain: No pain Severity: Mild Pain Level: Denies Associated symptoms: None Exacerbated by: Denies Relieved by: Denies Similar symptoms previously: Yes Recently seen / treated by doctor: Yes - Related Data Allergies/Adverse Reactions: No Known Allergies Allergy (Verified 07/01/17 11:48) Home Medications: Current Home Medications Acetaminophen with Codeine [Acetamin-Codein 300-30 mg/12.5] 12.5 ml PO PRN PRN 07/01/17 [History] Acidoph/L.bulg/Bif.b/S.thermop [Bacid Caplet] 1 each PO DAILY 07/01/17 [History] Donepezil HCl 23 mg PO DAILY 07/01/17 [History] Juniper/Nahid/Znox/Pet,Wh/Horacio [Endit Ointment] 480 gm TOP DAILY 07/01/17 [History ] Past Medical History - Social History Smoking Status: Never Smoker Cigarette use (# per day): No Chew tobacco use (# tins/day): No Smoking Education Provided: No Frequency of alcohol use: None Drug Abuse: None Family History: DM, Hypertension, Other - Heart disease - Past Medical History Cardiac Medical History: Reports: Hx Coronary Artery Disease, Hx Hypercholesterolemia, Hx Hypertension Denies: Hx DVT, Hx Heart Attack Pulmonary Medical History: Denies: Hx Asthma, Hx COPD Neurological Medical History: Denies: Hx Cerebrovascular Accident, Hx Migraine, Hx Seizures Endocrine Medical History: Reports: Hx Diabetes Mellitus Type 1 - NIDDM, Hx Diabetes Mellitus Type 2 - INSULIN DEPENDENT, Hx Hypothyroidism Renal/ Medical History: Denies: Hx Peritoneal Dialysis GI Medical History: Reports: Hx Gastroesophageal Reflux Disease. Denies: Hx Hepatitis, Hx Hiatal Hernia, Hx Ulcer Musculoskeltal Medical History: Reports Hx Arthritis - osteoarthritis Psychiatric Medical History: Denies: Hx Depression Infectious Medical History: Reports: Hx C-Diff. Denies: Hx Hepatitis Past Surgical History: Reports: Hx Cardiac Catheterization - STENT, PACEMAKER, Hx Coronary Stent, Hx Hysterectomy, Hx Orthopedic Surgery - toes, Other - Pacemaker implant. Denies: Hx Mastectomy, Hx Open Heart Surgery, Hx Pacemaker - Immunizations Immunizations up to date: Yes Hx Diphtheria, Pertussis, Tetanus Vaccination: Yes Review of Systems - Review of Systems Notes: REVIEW OF SYSTEMS: CONSTITUTIONAL : Denies fever, chills, or sweats. Denies recent illness. EENT: Admits to facial swelling CARDIOVASCULAR: Denies chest pain. Denies palpitations or racing or irregular heart beat. Denies ankle edema. RESPIRATORY: Denies cough, cold, or chest congestion. Denies shortness of breath, difficulty breathing, or wheezing. GASTROINTESTINAL: Denies abdominal pain or distention. Denies nausea, vomiting , or diarrhea. Denies blood in vomitus, stools, or per rectum. Denies black, tarry stools. Denies constipation. GENITOURINARY: Denies difficulty urinating, painful urination, burning, frequency, blood in urine, or discharge. FEMALE GENITOURINARY: Denies vaginal bleeding, heavy or abnormal periods, irregular periods. Denies vaginal discharge or odor. MUSCULOSKELETAL: Denies back or neck pain or stiffness. Denies joint pain or swelling. SKIN: abrasion HEMATOLOGIC : Denies easy bruising or bleeding. LYMPHATIC: Denies swollen, enlarged glands. NEUROLOGICAL: Denies confusion or altered mental status. Denies passing out or loss of consciousness. Denies dizziness or lightheadedness. Denies headache. Denies weakness or paralysis or loss of use of either side. Denies problems with gait or speech. Denies sensory loss, numbness, or tingling. Denies seizures. PSYCHIATRIC: Denies anxiety or stress. Denies depression, suicidal ideation, or homicidal ideation. ALL OTHER SYSTEMS REVIEWED AND NEGATIVE. PHYSICAL EXAMINATION: GENERAL: Well-appearing, well-nourished and in no acute distress. HEAD: Superficial abrasion of the forehead, mild ecchymosis of the right frontal , EYES: Pupils equal round and reactive to light, extraocular movements intact, conjunctiva are normal. ENT: Nares patent, oropharynx clear without exudates. Moist mucous membranes. NECK: Normal range of motion, supple without lymphadenopathy LUNGS: Breath sounds clear to auscultation bilaterally and equal. No wheezes rales or rhonchi. HEART: Regular rate and rhythm without murmurs ABDOMEN: Soft, nontender, nondistended abdomen. No guarding, no rebound. No masses appreciated. Female : deferred Musculoskeletal: Normal range of motion, no pitting or edema. No cyanosis. NEUROLOGICAL: Cranial nerves grossly intact. Normal speech, normal gait. Normal sensory, motor exams PSYCH: Normal mood, normal affect. SKIN: echymosis around the eyes, cheeks Dictation was performed using [employer] voice recognition software Physical Exam - Vital signs Vitals: Temp Pulse Resp BP Pulse Ox 98.7 F 82 16 127/59 H 100 07/01/17 11:45 07/01/17 11:45 07/01/17 11:45 07/01/17 11:45 07/01/17 11:45 Course - Re-evaluation Re-evalutation: 07/01/17 12:59 As expected the patient has ecchymosis consistent with the trauma being on blood thinner. She is otherwise asymptomatic in no distress I reviewed previous imaging and gave report to son After performing a Medical Screening Examination, I estimate there is LOW risk for INTRACRANIAL HEMORRHAGE, UNSTABLE SPINE FRACTURE, CENTRAL CORD SYNDROME, CAUDA EQUINA, THORACIC AORTIC DISSECTION, PNEUMOTHORAX, PERFORATED BOWEL, RUPTURED ABDOMINAL AORTIC ANEURYSM, ACUTE TENDON RUPTURE, COMPARTMENT SYNDROME, or OPEN FRACTURE, thus I consider the discharge disposition reasonable. Also, there is no evidence or peritonitis, sepsis, or toxicity. I have reevaluated this patient multiple times and no significant life threatening changes are noted. The patient and I have discussed the diagnosis and risks, and we agree with discharging home to follow-up with their primary doctor with the understanding that symptoms and presentations can change. We also discussed returning to the Emergency Department immediately if new or worsening symptoms occur. We have discussed the symptoms which are most concerning (e.g., bloody stool, fever, changing or worsening pain, vomiting) that necessitate immediate return. - Vital Signs Vital signs: Temp Pulse Resp BP Pulse Ox 98.7 F 82 16 127/59 H 100 07/01/17 11:45 07/01/17 11:45 07/01/17 11:45 07/01/17 11:45 07/01/17 11:45 - Diagnostic Test Radiology reviewed: Image reviewed, Reports reviewed Discharge - Discharge Clinical Impression: Facial swelling Hematoma of frontal scalp Qualifiers: Encounter type: initial encounter Qualified Code(s): S00.03XA - Contusion of scalp, initial encounter Condition: Stable Disposition: HOME, SELF-CARE Additional Instructions: Follow up with your physician tomorrow for further care or return to the ED IMMEDIATELY if symptoms worsen or new concerns occur. If you cannot afford to follow up with your primary care physician a list of low cost clinics have been provided at the end of your discharge papers as well.
== END 2017-07-01 12:49 | disposition home or self-care (01) ==
LOC: ER 11:36
DX: S00.03XA Contusion of scalp, initial encounter (principal); R22.0 Localized swelling, mass and lump, head; W19.XXXA Unspecified fall, initial encounter; F03.90 Unspecified dementia, unspecified severity, without behavioral disturbance, psychotic disturbance, mood disturbance, and anxiety; E78.00 Pure hypercholesterolemia, unspecified; I25.10 Atherosclerotic heart disease of native coronary artery without angina pectoris; I10 Essential (primary) hypertension; E11.9 Type 2 diabetes mellitus without complications; E03.9 Hypothyroidism, unspecified; Z79.4 Long term (current) use of insulin; K21.9 Gastro-esophageal reflux disease without esophagitis; Z95.0 Presence of cardiac pacemaker; Z90.710 Acquired absence of both cervix and uterus
CPT/HCPCS: 99283

== ENCOUNTER 2017-09-25 20:52 | Emergency (ER) | payer MEDICARE, MEDICAID ==
--- NOTE | 2017-09-25 20:57 | ER Document Report ---
ED General - General Stated Complaint: FALL,HEAD INJURY Time Seen by Provider: 09/25/17 20:57 Mode of Arrival: Medic Information source: Emergency Med Personnel Cannot obtain history due to: Dementia Notes: 72-year-old female who is on Plavix results after mechanical fall striking her head. Patient denies any concerns except for the fall, notes is mechanical, patient does note a hematoma to her scalp. Patient denies any pain anywhere else TRAVEL OUTSIDE OF THE [place] IN LAST 30 DAYS: No - HPI Onset: Just prior to arrival Onset/Duration: Sudden Quality of pain: Achy Severity: Mild Pain Level: 1 Associated symptoms: Other Exacerbated by: Denies Relieved by: Denies Similar symptoms previously: No Recently seen / treated by doctor: No - Related Data Allergies/Adverse Reactions: No Known Allergies Allergy (Verified 09/25/17 21:02) Past Medical History - Social History Smoking Status: Never Smoker Cigarette use (# per day): No Chew tobacco use (# tins/day): No Smoking Education Provided: No Family History: DM, Hypertension, Other - Heart disease - Past Medical History Cardiac Medical History: Reports: Hx Coronary Artery Disease, Hx Hypercholesterolemia, Hx Hypertension Denies: Hx DVT, Hx Heart Attack Pulmonary Medical History: Denies: Hx Asthma, Hx COPD Neurological Medical History: Denies: Hx Cerebrovascular Accident, Hx Migraine, Hx Seizures Endocrine Medical History: Reports: Hx Diabetes Mellitus Type 1 - NIDDM, Hx Diabetes Mellitus Type 2 - INSULIN DEPENDENT, Hx Hypothyroidism Renal/ Medical History: Denies: Hx Peritoneal Dialysis GI Medical History: Reports: Hx Gastroesophageal Reflux Disease. Denies: Hx Hepatitis, Hx Hiatal Hernia, Hx Ulcer Musculoskeltal Medical History: Reports Hx Arthritis - osteoarthritis Psychiatric Medical History: Denies: Hx Depression Infectious Medical History: Reports: Hx C-Diff. Denies: Hx Hepatitis Past Surgical History: Reports: Hx Cardiac Catheterization - STENT, PACEMAKER, Hx Coronary Stent, Hx Hysterectomy, Hx Orthopedic Surgery - toes, Other - Pacemaker implant. Denies: Hx Mastectomy, Hx Open Heart Surgery, Hx Pacemaker - Immunizations Immunizations up to date: Yes Hx Diphtheria, Pertussis, Tetanus Vaccination: Yes Review of Systems - Review of Systems Notes: REVIEW OF SYSTEMS: CONSTITUTIONAL : Denies fever, chills, or sweats. Denies recent illness. EENT: Denies eye, ear, throat, or mouth pain or symptoms. Denies nasal or sinus congestion or discharge. Denies throat, tongue, or mouth swelling or difficulty swallowing. CARDIOVASCULAR: Denies chest pain. Denies palpitations or racing or irregular heart beat. Denies ankle edema. RESPIRATORY: Denies cough, cold, or chest congestion. Denies shortness of breath, difficulty breathing, or wheezing. GASTROINTESTINAL: Denies abdominal pain or distention. Denies nausea, vomiting , or diarrhea. Denies blood in vomitus, stools, or per rectum. Denies black, tarry stools. Denies constipation. GENITOURINARY: Denies difficulty urinating, painful urination, burning, frequency, blood in urine, or discharge. FEMALE GENITOURINARY: Denies vaginal bleeding, heavy or abnormal periods, irregular periods. Denies vaginal discharge or odor. MUSCULOSKELETAL: Denies back or neck pain or stiffness. Denies joint pain or swelling. SKIN: Admits to head injury HEMATOLOGIC : Denies easy bruising or bleeding. LYMPHATIC: Denies swollen, enlarged glands. NEUROLOGICAL: Denies confusion or altered mental status. Denies passing out or loss of consciousness. Denies dizziness or lightheadedness. Denies headache. Denies weakness or paralysis or loss of use of either side. Denies problems with gait or speech. Denies sensory loss, numbness, or tingling. Denies seizures. PSYCHIATRIC: Denies anxiety or stress. Denies depression, suicidal ideation, or homicidal ideation. ALL OTHER SYSTEMS REVIEWED AND NEGATIVE. PHYSICAL EXAMINATION: GENERAL: Well-appearing, well-nourished and in no acute distress. HEAD: Frontal hematoma EYES: Pupils equal round and reactive to light, extraocular movements intact, conjunctiva are normal. ENT: Nares patent, oropharynx clear without exudates. Moist mucous membranes. NECK: Normal range of motion, supple without lymphadenopathy LUNGS: Breath sounds clear to auscultation bilaterally and equal. No wheezes rales or rhonchi. HEART: Regular rate and rhythm without murmurs ABDOMEN: Soft, nontender, nondistended abdomen. No guarding, no rebound. No masses appreciated. Female : deferred Musculoskeletal: Normal range of motion, no pitting or edema. No cyanosis. NEUROLOGICAL: Cranial nerves grossly intact. Normal speech, normal gait. Normal sensory, motor exams PSYCH: Normal mood, normal affect. SKIN: Warm, Dry, normal turgor, no rashes or lesions noted. Dictation was performed using [employer] voice recognition software Physical Exam - Vital signs Vitals: Temp Pulse Resp BP Pulse Ox 97.4 F 91 22 H 122/66 95 09/25/17 21:06 09/25/17 21:06 09/25/17 21:06 09/25/17 21:06 09/25/17 21:06 Course - Re-evaluation Re-evalutation: 09/25/17 22:36 Patient was emergently sent for CT head and neck, no intracranial injury is noted no unstable fractures noted patient is otherwise stable for discharge. Patient return precautions have been provided to the care facility After performing a Medical Screening Examination, I estimate there is LOW risk for ACUTE GLAUCOMA, TEMPORAL ARTERITIS, MENINGITIS, INCRANIAL HEMORRHAGE, or ISCHEMIC STROKE thus I consider the discharge disposition reasonable. I have reevaluated this patient multiple times and no significant life threatening changes are noted. 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 If you cannot afford to follow up with your primary care physician a list of low cost clinics have been provided at the end of your discharge papers as well.
--- NOTE | 2017-09-25 21:43 | RADIOLOGY REPORT (SQ) ---
EXAM DESCRIPTION: CT HEAD WITHOUT COMPLETED DATE/TIME: 09/25/2017 9:33 pm REASON FOR STUDY: head injury on plavix COMPARISON: None. TECHNIQUE: Axial images acquired through the brain without intravenous contrast. Images reviewed wi th bone, brain and subdural windows. Images stored on PACS. All CT scanners at this facility use dose modulation, iterative reconstruction, and/or weight based d osing when appropriate to reduce radiation dose to as low as reasonably achievable (ALARA). [facility]: Dose Right [facility]: CareDose [facility]: Dose Right [facility]: Teradose 4D [facility]: LurnQ RADIATION DOSE: mGy. LIMITATIONS: None. FINDINGS: VENTRICLES: Prominent. CEREBRUM: No masses. No hemorrhage. No midline shift. Areas of low density in the white matter mos t likely due to chronic micro-vascular ischemic change. No evidence for acute infarction. CEREBELLUM: No masses. No hemorrhage. No alteration of density. No evidence for acute infarction. EXTRAAXIAL SPACES: Age-related involutional change. No fluid collections. No masses. ORBITS AND GLOBE: No intra- or extraconal masses. Normal contour of globe without masses. CALVARIUM: No fracture. PARANASAL SINUSES: No fluid or mucosal thickening. SOFT TISSUES: Frontal soft tissue hematoma. OTHER: No other significant finding. IMPRESSION: CHRONIC CHANGES OF ATROPHY AND MICROVASCULAR ISCHEMIA. NO ACUTE PROCESS. EVIDENCE OF ACUTE STROKE: NO. TECHNICAL DOCUMENTATION: JOB ID: [id number] Quality ID # 436: Final reports with documentation of one or more dose reduction techniques (e.g., Au tomated exposure control, adjustment of the mA and/or kV according to patient size, use of iterative reconstruction technique) 2010 [employer]- All Rights Reserved
--- NOTE | 2017-09-25 21:45 | RADIOLOGY REPORT (SQ) ---
EXAM DESCRIPTION: CT CERVICAL SPINE WITHOUT COMPLETED DATE/TIME: 09/25/2017 9:33 pm REASON FOR STUDY: head injury on plavix COMPARISON: 06/29/2017 TECHNIQUE: Axial images acquired through the cervical spine without intravenous contrast. Images re viewed with lung, soft tissue and bone windows. Reconstructed coronal and sagittal MPR images review ed. Images stored on PACS. All CT scanners at this facility use dose modulation, iterative reconstruction, and/or weight based d osing when appropriate to reduce radiation dose to as low as reasonably achievable (ALARA). [facility]: Dose Right [facility]: CareDose [facility]: Dose Right [facility]: Teradose 4D [facility]: Smart [employer] RADIATION DOSE: mGy. LIMITATIONS: None. FINDINGS: ALIGNMENT: Anatomic. MINERALIZATION: Normal. VERTEBRAL BODIES: No fractures or dislocation. DISCS: Multilevel disc space narrowing with osteophytes. FACETS, LATERAL MASSES, POSTERIOR ELEMENTS: Facet arthropathy. No fractures. No dislocation. No ac anastasiya findings. HARDWARE: None in the spine. VISUALIZED RIBS: No fractures. LUNG APICES AND SOFT TISSUES: No significant or acute findings. OTHER: No other significant finding. IMPRESSION: CHRONIC DEGENERATIVE CHANGES. NO ACUTE FINDINGS. TECHNICAL DOCUMENTATION: JOB ID: [id number] Quality ID # 436: Final reports with documentation of one or more dose reduction techniques (e.g., Au tomated exposure control, adjustment of the mA and/or kV according to patient size, use of iterative reconstruction technique) 2010 [employer]- All Rights Reserved
[2017-09-25 22:43] VITALS: BP 137/81
== END 2017-09-25 22:42 | disposition home or self-care (01) ==
LOC: ER 20:52
DX: S00.03XA Contusion of scalp, initial encounter (principal); G30.1 Alzheimer's disease with late onset; F02.80 Dementia in other diseases classified elsewhere, unspecified severity, without behavioral disturbance, psychotic disturbance, mood disturbance, and anxiety; W18.00XA Striking against unspecified object with subsequent fall, initial encounter
CPT/HCPCS: 70450; 72125; 99284

== ENCOUNTER 2017-10-25 00:56 | Emergency (ER) | payer MEDICARE, MEDICAID ==
--- NOTE | 2017-10-25 01:15 | ER Document Report ---
ED Fall - General Chief Complaint: Fall Stated Complaint: FALL Time Seen by Provider: 10/25/17 01:01 Notes: The patient is a 72-year-old female who presents by EMS from [facility] after she tried to get out of bed, fell and hit her left forehead. Patient says that she remembers everything that happened it was a strictly mechanical fall after she slipped getting out of bed. Patient denies blurry vision, active bleeding, blood thinner use, numbness, tingling, chest pain, shortness of breath, syncope or LOC. TRAVEL OUTSIDE OF THE [place] IN LAST 30 DAYS: No - Related data Allergies/Adverse Reactions: No Known Allergies Allergy (Verified 09/25/17 21:02) Past Medical History - General Information source: Patient, Transfer Record, Emergency Med Personnel - Social History Smoking Status: Unknown if Ever Smoked Family History: DM, Hypertension, Other - Heart disease Patient has suicidal ideation: No Patient has homicidal ideation: No - Past Medical History Cardiac Medical History: Reports: Hx Coronary Artery Disease, Hx Hypercholesterolemia, Hx Hypertension Denies: Hx DVT, Hx Heart Attack Pulmonary Medical History: Denies: Hx Asthma, Hx COPD Neurological Medical History: Denies: Hx Cerebrovascular Accident, Hx Migraine, Hx Seizures Endocrine Medical History: Reports: Hx Diabetes Mellitus Type 1 - NIDDM, Hx Diabetes Mellitus Type 2 - INSULIN DEPENDENT, Hx Hypothyroidism Renal/ Medical History: Denies: Hx Peritoneal Dialysis GI Medical History: Reports: Hx Gastroesophageal Reflux Disease. Denies: Hx Hepatitis, Hx Hiatal Hernia, Hx Ulcer Musculoskeltal Medical History: Reports Hx Arthritis - osteoarthritis Psychiatric Medical History: Denies: Hx Depression Infectious Medical History: Reports: Hx C-Diff. Denies: Hx Hepatitis Past Surgical History: Reports: Hx Cardiac Catheterization - STENT, PACEMAKER, Hx Coronary Stent, Hx Hysterectomy, Hx Orthopedic Surgery - toes, Other - Pacemaker implant. Denies: Hx Mastectomy, Hx Open Heart Surgery, Hx Pacemaker - Immunizations Immunizations up to date: Yes Hx Diphtheria, Pertussis, Tetanus Vaccination: Yes Review of Systems - Review of Systems Notes: REVIEW OF SYSTEMS: CONSTITUTIONAL: -fevers, -chills EENT: -eye pain, -difficulty swallowing, -nasal congestion CARDIOVASCULAR:-chest pain, -syncope. RESPIRATORY: -cough, -SOB GASTROINTESTINAL: -abdominal pain, - nausea, -vomiting, -diarrhea GENITOURINARY: -dysuria, -hematuria MUSCULOSKELETAL: -back pain, -neck pain SKIN: -rash or skin lesions. HEMATOLOGIC: -easy bruising or bleeding. LYMPHATIC: -swollen, enlarged glands. NEUROLOGICAL: -altered mental status or loss of consciousness, -headache, - neurologic symptoms PSYCHIATRIC: -anxiety, -depression. ALL OTHER SYSTEMS REVIEWED AND NEGATIVE. Physical Exam - Vital signs Vitals: Temp Pulse BP Pulse Ox 98.7 F 83 145/99 H 100 10/25/17 01:03 10/25/17 01:03 10/25/17 01:03 10/25/17 01:03 - Notes Notes: PHYSICAL EXAMINATION: GENERAL: Well-appearing, well-nourished and in no acute distress. HEAD: Large left forehead hematoma. EYES: Pupils equal round and reactive to light, extraocular movements intact, sclera anicteric, conjunctiva are normal. ENT: nares patent, oropharynx clear without exudates. Moist mucous membranes. NECK: Normal range of motion, supple without lymphadenopathy LUNGS: Breath sounds clear to auscultation bilaterally and equal. No wheezes rales or rhonchi. HEART: Regular rate and rhythm without murmurs ABDOMEN: Soft, nontender, normoactive bowel sounds. No guarding, no rebound. No masses appreciated. EXTREMITIES: Normal range of motion, no pitting or edema. No cyanosis. NEUROLOGICAL: Cranial nerves grossly intact. Normal speech, normal gait. Normal sensory and motor exams. PSYCH: Normal mood, normal affect. SKIN: Warm, Dry, normal turgor, no rashes or lesions noted. Course - Re-evaluation Re-evalutation: Patient with a left forehead hematoma, but no other acute findings on CAT scan. She says that this was a strictly mechanical fall and she did not have LOC. No blood thinner use. Instructed her to use anti-inflammatories and ice packs for her forehead hematoma and to return if she has any worsening pain or any other symptoms. - Vital Signs Vital signs: Temp Pulse Resp BP Pulse Ox 98.7 F 83 145/99 H 100 10/25/17 01:03 10/25/17 01:03 10/25/17 01:03 10/25/17 01:03 - Diagnostic Test Radiology reviewed: Image reviewed, Reports reviewed Radiology results interpreted by me: CT Head/Facial: Left frontal scalp contusion, no other acute abnormalities Discharge - Discharge Clinical Impression: Traumatic hematoma of forehead Qualifiers: Encounter type: initial encounter Qualified Code(s): S00.83XA - Contusion of other part of head, initial encounter Condition: Stable Disposition: HOME, SELF-CARE Additional Instructions: Use ice packs and Motrin with food to help with the pain and swelling. Return to the ER if you have any worsening symptoms or any other concerns. Contusion Your injury has resulted in a contusion -- a crushing of the deep tissues. No injury to important structures was detected during the physician's exam. Contusions vary in the amount of pain they cause, and in the length of time required for healing. Typically, the area will become bruised, and will remain painful to touch for two or three weeks. However, most patients are back to working and playing within a few days. After the initial period of rest and cold-packs, your symptoms (together with the doctor's recommendations) will determine how rapidly you can get back to full activity. Usually this means "do what feels okay, but don't do things that hurt." If re-examination was recommended, it's important to follow up as instructed. Call the doctor or return any time if pain increases, if swelling becomes severe, if you develop numbness or weakness in an injured extremity, or if any other alarming symptoms occur. Forms: Elevated Blood Pressure
--- NOTE | 2017-10-25 01:31 | RADIOLOGY REPORT (SQ) ---
EXAM DESCRIPTION: CT HEAD WITHOUT CLINICAL HISTORY: fall, left facial trauma COMPARISON: 09/25/2017 TECHNIQUE: Axial CT of the head obtained from the skull apex to the skull base without contrast. FINDINGS: No acute intracranial hemorrhage identified. No mass, mass effect, shift of the midline, abnormal extra-axial fluid collection or CT evidence of acute ischemic change identified. The ventricular system and sulcal spaces are mildly enlarged compatible with mild cerebral atrophy. Scattered areas of hypodensity throughout the supratentorial white matter are nonspecific and may be related to chronic small vessel ischemic change. The visualized paranasal sinuses and the mastoids are clear. No skull fracture identified. Visualized orbits and globes are unremarkable. Atherosclerotic calcification of the intracranial internal carotid arteries. Contusion/hematoma in the right frontal subcutaneous scalp soft tissues. DLP:1138.22 mGy-cm IMPRESSION: 1. No acute intracranial abnormality by CT criteria. This exam was performed according to our departmental dose-optimization program, which includes automated exposure control, adjustment of the mA and/or kV according to patient size and/or use of iterative reconstruction technique.
--- NOTE | 2017-10-25 01:39 | RADIOLOGY REPORT (SQ) ---
EXAM DESCRIPTION: CT FACIAL AREA WITHOUT CLINICAL HISTORY: fall, left facial trauma COMPARISON: None available TECHNIQUE: Axial CT of the facial bones obtained without contrast. FINDINGS: Orbital floors and samuels are intact. No abnormalities of the globes or intraconal contents. Contusion in the left frontal scalp subcutaneous soft tissues. No fracture of the nasal bones. Frontal, sphenoid, maxillary, and frontal sinuses are well aerated. No fracture of the maxillary antral samuels or hard palate. The pterygoid processes are intact. The zygomatic processes are intact. No fracture of the mandible. No mandibular condylar dislocation. Visualized parotid and submandibular glands as well as the tongue base are unremarkable by noncontrast CT criteria. No definite abnormalities in the pharyngeal mucosal space, retropharyngeal space and parapharyngeal space noncontrast CT criteria. No cervical lymphadenopathy identified. DLP: 566.14 mGy-cm IMPRESSION: 1. No acute facial bone fracture identified. This exam was performed according to our departmental dose-optimization program, which includes automated exposure control, adjustment of the mA and/or kV according to patient size and/or use of iterative reconstruction technique.
[2017-10-25] MEDS ORDERED: IBUPROFEN 600 MG TABLET PO ONE (01:46)
[2017-10-25 06:35] VITALS: BP 94/50
== END 2017-10-25 06:41 | disposition home or self-care (01) ==
LOC: ER 00:56
DX: S00.83XA Contusion of other part of head, initial encounter (principal); W01.0XXA Fall on same level from slipping, tripping and stumbling without subsequent striking against object, initial encounter; Y93.89 Activity, other specified; Y92.193 Bedroom in other specified residential institution as the place of occurrence of the external cause; I25.10 Atherosclerotic heart disease of native coronary artery without angina pectoris; I10 Essential (primary) hypertension; E11.9 Type 2 diabetes mellitus without complications; Z95.5 Presence of coronary angioplasty implant and graft; Z95.0 Presence of cardiac pacemaker
CPT/HCPCS: 99285; 70450; 70486; A9270